=== PATIENT | female | born 1975 | race Caucasian/White ===

== ENCOUNTER 2024-01-06 16:10 | Emergency (ER) | payer OTHER ==
[2024-01-06 17:14] LABS: Hematocrit 38.8 % (36.0-45.0); Hemoglobin 12.7 g/dL (12.0-15.0); MCHC 32.8 g/dL (32.0-36.0); MCV 79.2 fL (80-100); Platelets 235 thou/uL (152-406); Red Cell Distribution Width 16.7 % (12.1-15.2)
[2024-01-06 17:15] LABS: Absolute Basophils 0.1 K/uL (0-0.5); Absolute Eosinophils 0.1 K/uL (0-0.5); Absolute Lymphocytes (CBC) 1.9 K/uL (0.7-4.9); Absolute Monocytes 0.3 K/uL (0.1-1.3); Absolute Neutrophil 4.8 K/uL (1.8-8.0); Eosinophils % 0.8 % (0-4.4); Lymphocytes % 26.1 % (15.3-44.8); MPV 8.3 fL (7.6-11.3); Monocytes % 4.6 % (3.3-12.3); Neutrophils % 66.5 % (41.7-73.7); Nucleated Red Blood Cells % 0.1 % (0-0)
[2024-01-06 17:28] LABS: Specific Gravity 1.024 (1.005-1.030); Sqamous Epithelial <5 /HPF (None Seen); Urine Bacteria <20 /HPF (<20); Urine Bilirubin NEGATIVE (Negative); Urine Blood 2+ (Negative); Urine Clarity Extremely Turbid (Clear); Urine Color Yellow (Yellow); Urine Crystals Unidentified Few /HPF (None Seen); Urine Culture Reflex Order REFLEXED; Urine Glucose NEGATIVE (Negative); Urine Ketones NEGATIVE (Negative); Urine Microscopic Reflex YN ORDER UMIC; Urine Nitrite NEGATIVE (Negative); Urine Protein 1+ (Negative); Urine RBC 21-50 /HPF (None Seen); Urine Urobilinogen Normal (Normal); Urine WBC >50 /HPF (<5); Urine WBC Clump Rare /HPF (None Seen)
[2024-01-06 17:29] LABS: ALT/SGPT 15 U/L (13-56); Albumin 3.6 g/dL (3.4-5.0); Albumin/Globulin Ratio 0.9 (1.1-1.8); Alkaline Phosphatase 68 U/L (45-117); BUN Blood Urea Nitrogen 12 mg/dL (7-18); Bicarbonate 28 mEq/L (21-32); Bilirubin Total 0.6 mg/dL (0.2-1.0); Globulin 4.1 g/dL (2.3-3.5); Glomerular Filtration Rate 77 ml/min (=/>90); Glucose Level 93 mg/dL (74-106); Protein, Total 7.7 g/dL (6.4-8.2); Sodium Level 140 mEq/L (136-145)
[2024-01-06 17:30] LABS: AST/SGOT < 10 U/L (15-37)
[2024-01-06] MEDS ORDERED: CEFTRIAXONE 1000 MG/VIAL ONE (18:11)
[2024-01-06] MEDS ORDERED: NA CHLORIDE 0.9% 500 ML ONE (18:11)
--- NOTE | 2024-01-06 18:59 | ER ---
Nurse's Notes [facility] Name: Abhishek Quezada Age: 48 yrs Sex: Female : 1975 Arrival Date: 01/06/2024 Time: 16:10 Bed 7 Private MD: Diagnosis: UTI/ Urinary tract infection, site not specified Presentation: 01/05 16:42 Chief complaint: Patient states: I've been having trouble making it to the restroom. I tm6 have urinary frequency, urgency, and a burning sensation when I use the bathroom. My urine also has a bad smell. This has been going on for two days. Coronavirus screen: Vaccine status: Patient reports being unvaccinated. Ebola Screen: Patient negative for fever greater than or equal to 101.5 degrees Fahrenheit, and additional compatible Ebola Virus Disease symptoms Patient denies exposure to infectious person. Patient denies travel to an Ebola-affected area in the 21 days before illness onset. No symptoms or risks identified at this time. Initial Sepsis Screen: Does the patient meet any 2 criteria? No. Patient's initial sepsis screen is negative. Does the patient have a suspected source of infection? No. Patient's initial sepsis screen is negative. Risk Assessment: Do you want to hurt yourself or someone else? Patient reports no desire to harm self or others. Onset of symptoms was January 04, 2024. 16:42 Method Of Arrival: Wheelchair tm6 16:42 Acuity: [place] 3 tm6 Triage Assessment: 16:47 General: Appears in no apparent distress. Behavior is calm, cooperative. Pain: tm6 Complains of pain in groin Pain currently is 0 out of 10 on a pain scale. at worst was 5 out of 10 on a pain scale. Quality of pain is described as burning, Pain began 2-3 days ago. Aggravated by. EENT: No signs and/or symptoms were reported regarding the EENT system. Neuro: Level of Consciousness is awake, alert, obeys commands, Oriented to person, place, time, situation. Cardiovascular: Patient's skin is warm and dry. Respiratory: Airway is patent Respiratory effort is even, unlabored, Respiratory pattern is regular, symmetrical. GI: Abdomen is obese. : Reports burning with urination, since two days ago incontinence, urgency, urinary frequency. Derm: No signs and/or symptoms reported regarding the dermatologic system. Musculoskeletal: No signs and/or symptoms reported regarding the musculoskeletal system. 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 Flu vaccine is up to date. - Infectious Disease History:: Denies. - Social history:: Smoking status: Reported history of juuling and/or vaping. Patient/guardian denies using alcohol. Screenin:50 [facility] ED Fall Risk Assessment (Adult) History of falling in the last 3 months, tm6 including since admission No falls in past 3 months (0 pts) Confusion or Disorientation No (0 pts) Intoxicated or Sedated No (0 pts) Impaired Gait Yes (1 pt) Mobility Assist Device Used Yes (1 pt) Altered Elimination Yes (1 pt) Score/Fall Risk Level 3 or more points = High Risk Oriented to surroundings, Maintained a safe environment, Educated pt \T\ family on fall prevention, incl call for assistance when getting out of bed. Abuse screen: Denies threats or abuse. Denies injuries from another. Nutritional screening: No deficits noted. Tuberculosis screening: No symptoms or risk factors identified. Assessment: 16:50 Reassessment: see triage assessment. tm6 18:20 Reassessment: Patient and/or family updated on plan of care and expected duration. Pain tm6 level reassessed. Patient is alert, oriented x 3, equal unlabored respirations, skin warm/dry/pink. Vital Signs: 16:42 BP 129 / 52; Pulse 67; Resp 20; Temp 98.9(O); Pulse Ox 100% on R/A; MAP 72 mmHg; Weight tm6 181.44 kg; Height 5 ft. 4 in. ; Pain 0/10; 18:19 BP 145 / 60; Pulse 60; Pulse Ox 100% on R/A; MAP 86 mmHg; Pain 0/10; ph 19:13 BP 146 / 54; Pulse 72; Resp 17; Temp 98.9; Pulse Ox 100% ; Pain 0/10; ph 16:42 Body Mass Index 68.66 (181.44 kg, 162.56 cm) tm6 16:42 Pain Scale: Adult tm6 18:19 Pain Scale: Adult ph 19:13 Pain Scale: Adult ph [place] Coma Score: 19:13 Eye Response: spontaneous(4). Motor Response: obeys commands(6). Verbal Response: ph oriented(5). Total: 15. ED Course: 16:15 Patient arrived in ED. ra3 16:22 Theodore Leon FNP-C is [facility]. dr5 16:22 Perico Sharpe MD is Attending Physician. dr5 16:42 Les Holm RN is Primary Nurse. tm6 16:47 Triage completed. tm6 16:47 Arm band placed on right wrist. tm6 16:50 Patient has correct armband on for positive identification. Fall risk band placed. Bed tm6 in low position. Call light in reach. Side rails up X 1. Provided Education on: use of call lópez. Client placed on continuous cardiac and pulse oximetry monitoring. NIBP monitoring applied. Pulse ox on. NIBP on. Door closed. Noise minimized. Warm blanket given. Pillow given. 17:02 Inserted saline lock: 20 gauge in right antecubital area, using aseptic technique. tm6 Blood collected. Flushed with 10 mL NS. 17:03 Urine collected: clean catch specimen, clear. tm6 19:08 No provider procedures requiring assistance completed. IV discontinued, intact, ph bleeding controlled, No redness/swelling at site. Pressure dressing applied. Administered Medications: 18:20 Drug: NS 0.9% IV 500 ml IV at bolus once; to be given as a bolus over 30 minutes Route: tm6 IV; Rate: bolus; Site: right antecubital; 19:12 Follow up: Response: No adverse reaction; IV Status: Completed infusion; IV Intake: ph 500ml 18:20 Drug: Rocephin IV 1 grams IV at per protocol once; Given slow IV push per pharmacy tm6 instructions Route: IV; Rate: per protocol; Site: right antecubital; 19:12 Follow up: Response: No adverse reaction; IV Status: Completed infusion; IV Intake: 10mlph Medication: 16:50 VIS not applicable for this client. tm6 Intake: 19:12 IV: 10ml; Total: 10ml. ph 19:12 IV: 500ml; Total: 510ml. ph Outcome: 18:59 Discharge ordered by . dr5 19:08 Discharged to home via wheelchair, with family, ph 19:08 Condition: good 19:08 Discharge instructions given to patient, Instructed on discharge instructions, follow up and referral plans. medication usage, Demonstrated understanding of instructions, follow-up care, medications, 19:09 Prescriptions given X 2, ph 19:09 Patient left the ED. ph Signatures: Stella Melissa RN RN ph Les Holm RN RN tm6 Collette Patel ra3 Theodore Leon, GANG DRILL PRESS OPERATOR-C GANG DRILL PRESS OPERATOR-Cdr5 Corrections: (The following items were deleted from the chart) 17:03 16:54 Urinalysis+U.LAB.BRZ drawn and sent. tm6 EDMS
--- NOTE | 2024-01-06 18:59 | EDPHYS ---
Physician Documentation [facility] Name: Abhishek Quezada Age: 48 yrs Sex: Female : 1975 Arrival Date: 01/06/2024 Time: 16:10 Bed 7 Private MD: ED Physician Perico Sharpe HPI: 01/05 17:57 This 48 yrs old Female presents to ER via Wheelchair with complaints of dr5 Urinary Problem. 17:58 Onset: The symptoms/episode began/occurred 2 day(s) ago. Associated signs and symptoms: dr5 Pertinent positives: dysuria. Modifying factors: The patient symptoms are alleviated by nothing. Patient is a 48-year-old female coming in with dysuria malodorous urine for the past 2 days. Patient denies fever, vaginal discharge, vaginal bleeding, melena.. 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 Flu vaccine is up to date. - Infectious Disease History:: Denies. - Social history:: Smoking status: Reported history of juuling and/or vaping. Patient/guardian denies using alcohol. ROS: 17:58 Constitutional: as per hpi dr5 Exam: 17:58 Constitutional: This is a well developed, well nourished patient who is awake, alert, dr5 and in no acute distress. Head/Face: Normocephalic, atraumatic. Cardiovascular: Regular rate and rhythm with a normal S1 and S2. Normal PMI, no JVD. No pulse deficits. Respiratory: Lungs have equal breath sounds bilaterally, clear to auscultation. No rales, rhonchi or wheezes noted. No increased work of breathing, no retractions or nasal flaring. Abdomen/GI: Soft, non-tender, non-distended Vital Signs: 16:42 BP 129 / 52; Pulse 67; Resp 20; Temp 98.9(O); Pulse Ox 100% on R/A; MAP 72 mmHg; Weight tm6 181.44 kg; Height 5 ft. 4 in. ; Pain 0/10; 18:19 BP 145 / 60; Pulse 60; Pulse Ox 100% on R/A; MAP 86 mmHg; Pain 0/10; ph 19:13 BP 146 / 54; Pulse 72; Resp 17; Temp 98.9; Pulse Ox 100% ; Pain 0/10; ph 16:42 Body Mass Index 68.66 (181.44 kg, 162.56 cm) tm6 16:42 Pain Scale: Adult tm6 18:19 Pain Scale: Adult ph 19:13 Pain Scale: Adult ph [place] Coma Score: 19:13 Eye Response: spontaneous(4). Motor Response: obeys commands(6). Verbal Response: ph oriented(5). Total: 15. MDM: 16:28 Medical Screening Exam initiated dr5 17:58 Differential diagnosis: viral Infection, bacterial infection, UTI. Data reviewed: vital dr5 signs, nurses notes. Consideration of Admission/Observation Escalation of care including admission/observation considered. Considered CT scan if patient had CVA tenderness, fever, or abdominal pain.. Care significantly affected by the following chronic conditions: PE, CHF. Care significantly affected by the following Social Determinants of Health: Poor access to healthcare and/or lack of insurance, Poor access to transportation. Counseling: I had a detailed discussion with the patient and/or guardian regarding the historical points, exam findings, and any diagnostic results supporting the discharge/admit diagnosis, lab results, the need for outpatient follow up, for definitive care, a family practitioner, to return to the emergency department if symptoms worsen or persist or if there are any questions or concerns that arise at home. ED course: UA completed and found to have urinary tract infection. Will cover with antibiotics and anticandida medication. Will have patient follow-up with primary care doctor as needed. 01/05 16:41 Order name: Urinalysis w/ reflexes; Complete Time: 17:34 dr5 01/05 16:41 Order name: CBC with Manual Differential; Complete Time: 17:34 dr5 01/05 16:41 Order name: CMP; Complete Time: 17:34 dr5 01/05 17:34 Order name: Urine Culture EDMS Administered Medications: 18:20 Drug: NS 0.9% IV 500 ml IV at bolus once; to be given as a bolus over 30 minutes Route: tm6 IV; Rate: bolus; Site: right antecubital; 19:12 Follow up: Response: No adverse reaction; IV Status: Completed infusion; IV Intake: ph 500ml 18:20 Drug: Rocephin IV 1 grams IV at per protocol once; Given slow IV push per pharmacy tm6 instructions Route: IV; Rate: per protocol; Site: right antecubital; 19:12 Follow up: Response: No adverse reaction; IV Status: Completed infusion; IV Intake: 10mlph Disposition Summary: 01/06/24 18:59 Discharge Ordered Notes: Location: Home dr5 Condition: Stable dr5 Diagnosis - UTI/ Urinary tract infection, site not specified dr5 Followup: dr5 - With: Emergency Department - When: As needed - Reason: Worsening of condition Followup: dr5 - With: Private Physician - When: 1 - 2 days - Reason: Recheck today's complaints, Continuance of care, Re-evaluation by your physician Discharge Instructions: - Discharge Summary Sheet dr5 - Urinary Tract Infection, Adult dr5 Forms: - Medication Reconciliation Form dr5 - Antibiotic Education dr5 - Patient Portal Instructions dr5 - Leadership Thank You Letter dr5 Prescriptions: - Cephalexin 500 mg Oral Capsule - take 1 capsule ORAL route every 12 hours for 10 days; 20 capsule; Refills: 0, dr5 Product Selection Permitted - Fluconazole 150 mg Oral tablet - take 1 tablet ORAL route Use as Directed Take 1 tablet PO today. Take 1 tablet dr5 PO after completion of antibiotics.; 2 tablet; Refills: 0, Product Selection Permitted Signatures: Dispatcher [employer] Les Chi RN RN tm6 Theodore Leon, WEATHERIZATION AND HOUSING INSPECTOR-C WEATHERIZATION AND HOUSING INSPECTOR-Cdr5 Setlla Melissa RN ph Corrections: (The following items were deleted from the chart) 17:03 16:41 Urinalysis+U.LAB.BRZ ordered. EDCT EDMS
[2024-01-07 01:18] VITALS: TEMP 98.9; O2SAT 100
[2024-01-07 01:24] VITALS: BP 145/60
== END 2024-01-06 19:09 | disposition home or self-care (01) ==
LOC: ER 16:10
DX: N39.0 Urinary tract infection, site not specified (principal)
CPT/HCPCS: 96365; 87088; 85025; 81001; 87086; 36415; 87077 ×2; 87186 ×2; 80053; 99284; J7040; J0696

== ENCOUNTER 2024-10-25 21:10 | Emergency (ER) | payer MEDICAID ==
--- OUTSIDE RECORDS SUMMARY | 2024-10-25 21:20 | XMS REPORT | Continuity of Care Document ---
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 2023-0 4-23 00:00: 00 10-08 00:00 :00 No [facility] Vraylar 3 mg Cap Vraylar 3 mg Cap 2023-0 4-23 00:00: 00 10-08 00:00 :00 No [facility] Lisinopril 10 mg Tab Lisinopril 10 mg Tab 2023-0 3-29 00:00: 00 Yes [facility] Atorvastati n Calcium 10 mg Tab Atorvastati n Calcium 10 mg Tab 0 3-28 00:00: 00 Yes [facility] Gabapentin 100 mg Cap Gabapentin 100 mg Cap 0 3-28 00:00: 00 - 00:00 :00 No [facility] buPROPion ER (XL) 150 mg Tab ER 24hr buPROPion ER (XL) 150 mg Tab ER 24hr 2022-0 9-26 00:00: 00 Yes [facility] Montelukast Sodium 10 mg Tab Montelukast Sodium 10 mg Tab 2022-0 9-13 00:00: 00 Yes [facility] Advair Diskus 250-50 MCG/ACT Aerosol Powder Breath Activated Inhalation Advair Diskus 250-50 MCG/ACT Aerosol Powder Breath Activated Inhalation 2022-0 8- 00:00: 00 Yes [facility] Ventolin HFA 108 (90 Base) MCG/ACT Aerosol Solution Inhalation Ventolin HFA 108 (90 Base) MCG/ACT Aerosol Solution Inhalation 0 8 00:00: 00 Yes [facility] Advair Diskus 250-50 MCG/ACT Aerosol Powder Breath Activated Inhalation Advair Diskus 250-50 MCG/ACT Aerosol Powder Breath Activated Inhalation 0 8- 00:00: 00 Yes [facility] Ventolin HFA 108 (90 Base) MCG/ACT Aerosol Solution Inhalation Ventolin HFA 108 (90 Base) MCG/ACT Aerosol Solution Inhalation 2022-0 8- 00:00: 00 Yes [facility] hydrOXYzine Pamoate 25 mg Cap hydrOXYzine Pamoate 25 mg Cap 2022-0 6-30 00:00: 00 Yes [facility] hydrOXYzine Pamoate 25 mg Cap hydrOXYzine Pamoate 25 mg Cap 2022-0 6-30 00:00: 00 Yes [facility] oxyBUTYnin Chloride ER 15 mg Tab ER 24hr oxyBUTYnin Chloride ER 15 mg Tab ER 24hr 2022-0 6-30 00:00: 00 Yes [facility] Furosemide 20 mg Tab Furosemide 20 mg Tab 2022-0 6-30 00:00: 00 Yes [facility] hydrOXYzine Pamoate 50 mg Cap hydrOXYzine Pamoate 50 mg Cap 2022-0 6-30 00:00: 00 Yes [facility] oxyBUTYnin Chloride ER 15 mg Tab ER 24hr oxyBUTYnin Chloride ER 15 mg Tab ER 24hr 2022-0 - 00:00: 00 Yes [facility] Eliquis 5 mg Tab Eliquis 5 mg Tab 2022-0 6 00:00: 00 08-31 00:00 :00 No [facility] Eliquis 5 mg Tab Eliquis 5 mg Tab 2022-0 09-08 00:00: 00 08-31 00:00 :00 No [facility] Venlafaxine ER 150 mg Tab ER 24hr Venlafaxine ER 150 mg Tab ER 24hr 2022-0 15 00:00: 00 Yes [facility] Divalproex Sodium ER 500 mg Tab ER 24hr Divalproex Sodium ER 500 mg Tab ER 24hr 2022-0 6- 00:00: 00 Yes [facility] traZODone 150 mg Tab traZODone 150 mg Tab 2022-0 3-07 00:00: 00 Yes [facility] ARIPiprazol e 30 mg Tab ARIPiprazol e 30 mg Tab 2022-0 3-07 00:00: 00 Yes [facility] traZODone 150 mg Tab traZODone 150 mg Tab 2022-0 3-07 00:00: 00 Yes [facility] Desvenlafax ine Succinate ER 100 mg Tab ER 24hr Desvenlafax ine Succinate ER 100 mg Tab ER 24hr 2022-0 3-07 00:00: 00 10-08 00:00 :00 No [facility] Atorvastati n Calcium Atorvastati n Calcium 2019-03- 05:00: 00 Yes 1 [facility] Advair Diskus 250 mcg-50 mcg/dose powder for inhalation INHALE 1 PUFF BY MOUTH TWICE DAILY Advair Diskus 250 mcg-50 mcg/dose powder for inhalation INHALE 1 PUFF BY MOUTH TWICE DAILY No Advair Diskus 250 mcg-50 mcg/dose powder for inhalation INHALE 1 PUFF BY MOUTH TWICE DAILY [facility] Eliquis 5 mg tablet TAKE 1 TABLET BY MOUTH EVERY 12 HOURS DIRECTED Eliquis 5 mg tablet TAKE 1 TABLET BY MOUTH EVERY 12 HOURS DIRECTED No Eliquis 5 mg tablet TAKE 1 TABLET BY MOUTH EVERY 12 HOURS DIRECTED [facility] fluconazole 200 mg tablet TAKE 1 TABLET BY MOUTH EVERY 72 HOURS DIRECTED FOR 15 DAYS fluconazole 200 mg tablet TAKE 1 TABLET BY MOUTH EVERY 72 HOURS DIRECTED FOR 15 DAYS No fluconazol e 200 mg tablet TAKE 1 TABLET BY MOUTH EVERY 72 HOURS DIRECTED FOR 15 DAYS [facility] hydroxyzine HCl 50 mg tablet TAKE 1 TABLET BY MOUTH FOUR TIMES DAILY DIRECTED FOR DEPRESSION hydroxyzine HCl 50 mg tablet TAKE 1 TABLET BY MOUTH FOUR TIMES DAILY DIRECTED FOR DEPRESSION No hydroxyzin e HCl 50 mg tablet TAKE 1 TABLET BY MOUTH FOUR TIMES DAILY DIRECTED FOR DEPRESSION [facility] ropinirole 0.25 mg tablet TAKE 1 BY MOUTH EVERY NIGHT AT BEDTIME FOR RESTLESS LEG SYNDROME ropinirole 0.25 mg tablet TAKE 1 BY MOUTH EVERY NIGHT AT BEDTIME FOR RESTLESS LEG SYNDROME No ropinirole 0.25 mg tablet TAKE 1 BY MOUTH EVERY NIGHT AT BEDTIME FOR RESTLESS LEG SYNDROME [facility] sulfamethox azole 800 mg-trimetho prim 160 mg tablet TAKE 1 TABLET BY MOUTH EVERY 12 HOURS FOR 7 DAYS sulfamethox azole 800 mg-trimetho prim 160 mg tablet TAKE 1 TABLET BY MOUTH EVERY 12 HOURS FOR 7 DAYS No sulfametho xazole 800 mg-trimeth oprim 160 mg tablet TAKE 1 TABLET BY MOUTH EVERY 12 HOURS FOR 7 DAYS [facility] tizanidine 2 mg tablet tizanidine 2 mg tablet No tizanidine 2 mg tablet [facility] aripiprazol e 20 mg tablet Take 1 tablet every day by oral route with meal(s) for 30 days. aripiprazol e 20 mg tablet Take 1 tablet every day by oral route with meal(s) for 30 days. No 1 Q1D aripiprazo le 20 mg tablet Take 1 tablet every day by oral route with meal(s) for 30 days. [facility] cetirizine 10 mg tablet TAKE 1 TABLET BY MOUTH EVERY DAY cetirizine 10 mg tablet TAKE 1 TABLET BY MOUTH EVERY DAY No cetirizine 10 mg tablet TAKE 1 TABLET BY MOUTH EVERY DAY [facility] clotrimazol e-betametha sone 1 %-0.05 % topical cream APPLY TOPICALLY TO THE AFFECTED AND SURROUNDING AREAS TWICE DAILY IN THE MORNING AND IN THE EVENING FOR 2 WEEKS clotrimazol e-betametha sone 1 %-0.05 % topical cream APPLY TOPICALLY TO THE AFFECTED AND SURROUNDING AREAS TWICE DAILY IN THE MORNING AND IN THE EVENING FOR 2 WEEKS No clotrimazo le-betamet hasone 1 %-0.05 % topical cream APPLY TOPICALLY TO THE AFFECTED AND SURROUNDIN G AREAS TWICE DAILY IN THE MORNING AND IN THE EVENING FOR 2 WEEKS [facility] fluticasone propionate 50 mcg/actuati on nasal spray,suspe nsion fluticasone propionate 50 mcg/actuati on nasal spray,suspe nsion No fluticason e propionate 50 mcg/actuat ion nasal spray,susp ension [facility] cephalexin 500 mg capsule cephalexin 500 mg capsule No cephalexin 500 mg capsule [facility] fluconazole 150 mg tablet fluconazole 150 mg tablet No fluconazol e 150 mg tablet [facility] ciprofloxac in 500 mg tablet TAKE 1 TABLET BY MOUTH TWICE DAILY ciprofloxac in 500 mg tablet TAKE 1 TABLET BY MOUTH TWICE DAILY No ciprofloxa jacinto 500 mg tablet TAKE 1 TABLET BY MOUTH TWICE DAILY [facility] amitriptyli ne 50 mg tablet TAKE 1 TABLET BY MOUTH EVERY DAY AT BEDTIME amitriptyli ne 50 mg tablet TAKE 1 TABLET BY MOUTH EVERY DAY AT BEDTIME No amitriptyl ine 50 mg tablet TAKE 1 TABLET BY MOUTH EVERY DAY AT BEDTIME [facility] famotidine 20 mg tablet TAKE 1 TABLET BY MOUTH TWICE DAILY FOR STOMACH ACID OR REFLUX famotidine 20 mg tablet TAKE 1 TABLET BY MOUTH TWICE DAILY FOR STOMACH ACID OR REFLUX No famotidine 20 mg tablet TAKE 1 TABLET BY MOUTH TWICE DAILY FOR STOMACH ACID OR REFLUX [facility] varenicline tartrate 0.5 mg (11)-1 mg (42) tablets in a dose pack FOLLOW PACKAGE DIRECTIONS varenicline tartrate 0.5 mg (11)-1 mg (42) tablets in a dose pack FOLLOW PACKAGE DIRECTIONS No vareniclin e tartrate 0.5 mg (11)-1 mg (42) tablets in a dose pack FOLLOW PACKAGE DIRECTIONS [facility] Ativan 0.5 mg tablet Take 1 tablet every day by oral route as needed for 30 days. Ativan 0.5 mg tablet Take 1 tablet every day by oral route as needed for 30 days. No 1 Q1D Ativan 0.5 mg tablet Take 1 tablet every day by oral route as needed for 30 days. [facility] atomoxetine 40 mg capsule TAKE 1 CAPSULE BY MOUTH EVERY DAY atomoxetine 40 mg capsule TAKE 1 CAPSULE BY MOUTH EVERY DAY No atomoxetin e 40 mg capsule TAKE 1 CAPSULE BY MOUTH EVERY DAY [facility] bupropion HCl XL 300 mg 24 hr tablet, extended release TAKE 1 TABLET BY MOUTH EVERY DAY bupropion HCl XL 300 mg 24 hr tablet, extended release TAKE 1 TABLET BY MOUTH EVERY DAY No bupropion HCl XL 300 mg 24 hr tablet, extended release TAKE 1 TABLET BY MOUTH EVERY DAY [facility] lisinopril 20 mg tablet TAKE 1 TABLET BY MOUTH EVERY DAY lisinopril 20 mg tablet TAKE 1 TABLET BY MOUTH EVERY DAY No lisinopril 20 mg tablet TAKE 1 TABLET BY MOUTH EVERY [facility] mupirocin 2 % topical ointment APPLY 1/2 GM TOPICALLY TWICE DAILY FOR PRESSURE [facility] DIRECTED FOR 30 DAYS mupirocin 2 % topical ointment APPLY 1/2 GM TOPICALLY TWICE DAILY FOR PRESSURE [facility] DIRECTED FOR 30 DAYS No mupirocin 2 % topical ointment APPLY 1/2 GM TOPICALLY TWICE DAILY FOR PRESSURE [facility] DIRECTED FOR 30 DAYS [facility] prednisone 20 mg tablet TAKE 1 TABLET BY MOUTH EVERY DAY FOR 7 DAYS prednisone 20 mg tablet TAKE 1 TABLET BY MOUTH EVERY DAY FOR 7 DAYS No prednisone 20 mg tablet TAKE 1 TABLET BY MOUTH EVERY DAY FOR 7 DAYS [facility] venlafaxine ER 225 mg tablet,exte nded release 24 hr TAKE 1 TABLET BY MOUTH DAILY WITH FOOD venlafaxine ER 225 mg tablet,exte nded release 24 hr TAKE 1 TABLET BY MOUTH DAILY WITH FOOD No venlafaxin e ER 225 mg tablet,ext ended release 24 hr TAKE 1 TABLET BY MOUTH DAILY WITH FOOD [facility] Eliquis 5 mg tablet TAKE 1 TABLET BY MOUTH EVERY 12 HOURS DIRECTED Eliquis 5 mg tablet TAKE 1 TABLET BY MOUTH EVERY 12 HOURS DIRECTED No Eliquis 5 mg tablet TAKE 1 TABLET BY MOUTH EVERY 12 HOURS DIRECTED [facility] tizanidine 2 mg tablet TAKE 1 TABLET BY MOUTH EVERY 8 HOURS NEEDED tizanidine 2 mg tablet TAKE 1 TABLET BY MOUTH EVERY 8 HOURS NEEDED No tizanidine 2 mg tablet TAKE 1 TABLET BY MOUTH EVERY 8 HOURS NEEDED [facility] trazodone 100 mg tablet TAKE 1 TABLET BY MOUTH EVERY DAY AT BEDTIME trazodone 100 mg tablet TAKE 1 TABLET BY MOUTH EVERY DAY AT BEDTIME No trazodone 100 mg tablet TAKE 1 TABLET BY MOUTH EVERY DAY AT BEDTIME [facility] aripiprazol e 10 mg tablet TAKE 1 TABLET BY MOUTH EVERY DAY AT BEDTIME aripiprazol e 10 mg tablet TAKE 1 TABLET BY MOUTH EVERY DAY AT BEDTIME No aripiprazo le 10 mg tablet TAKE 1 TABLET BY MOUTH EVERY DAY AT BEDTIME [facility] Immunizations Ordered Immunization Name Filled Immunization Name Date Status Comments Source Tdap Tdap Unknown Completed [facility] influenza, injectable, quadrivalent, preservative free influenza, injectable, quadrivalent, preservative free Unknown Completed [facility] Vital Signs Vital Name Observation Time Observation Value Comments S margy Systolic blood pressure 2024-10-13 19:42:00 129 mm[Hg] [facility] Diastolic blood pressure 2024-10-13 19:42:00 83 mm[Hg] [facility] Heart rate 2024-10-13 19:42:00 73 /min [facility] Body temperature 2024-10-13 19:42:00 36 [facility] Respiratory rate 2024-10-13 19:42:00 18 /min [facility] Body height 2024-10-13 19:42:00 162.6 cm [facility] Body weight 2024-10-13 19:42:00 171.46 kg [facility] BMI 2024-10-13 19:42:00 64.88 kg/m2 [facility] Oxygen saturation in Arterial blood by Pulse oximetry 2024-10-13 19:42:00 95 /min [facility] Systolic blood pressure 2024-09-23 17:16:00 151 mm[Hg] [facility] Diastolic blood pressure 2024-09-23 17:16:00 81 mm[Hg] [facility] Heart rate 2024-09-23 17:16:00 94 /min [facility] Body temperature 2024-09-23 17:16:00 36.78 [facility] Respiratory rate 2024-09-23 17:16:00 16 /min [facility] Body weight 2024-09-23 17:16:00 170.552 kg [facility] BMI 2024-09-23 17:16:00 64.54 kg/m2 [facility] Oxygen saturation in Arterial blood by Pulse oximetry 2024-09-23 17:16:00 97 /min [facility] Systolic blood pressure 2024-09-23 17:16:00 151 mm[Hg] [facility] Diastolic blood pressure 2024-09-23 17:16:00 81 mm[Hg] [facility] Heart rate 2024-09-23 17:16:00 94 /min [facility] Body temperature 2024-09-23 17:16:00 36.78 [facility] Respiratory rate 2024-09-23 17:16:00 16 /min [facility] Body weight 2024-09-23 17:16:00 170.552 kg [facility] BMI 2024-09-23 17:16:00 64.54 kg/m2 [facility] Oxygen saturation in Arterial blood by Pulse oximetry 2024-09-23 17:16:00 97 /min [facility] Systolic blood pressure 2024-09-09 17:11:00 136 mm[Hg] [facility] Diastolic blood pressure 2024-09-09 17:11:00 75 mm[Hg] [facility] Heart rate 2024-09-09 17:11:00 80 /min [facility] Body temperature 2024-09-09 17:11:00 36.72 [facility] Respiratory rate 2024-09-09 17:11:00 16 /min [facility] Body weight 2024-09-09 17:11:00 168.738 kg [facility] BMI 2024-09-09 17:11:00 63.85 [facility] in Arterial blood by Pulse oximetry 2024-09-09 17:11:00 96 /min [facility] Systolic blood pressure 2024-09-09 17:11:00 136 mm[Hg] [facility] Diastolic blood pressure 2024-09-09 17:11:00 75 mm[Hg] [facility] Heart rate 2024-09-09 17:11:00 80 /min [facility] Body temperature 2024-09-09 17:11:00 36.72 [facility] Respiratory rate 2024-09-09 17:11:00 16 /min [facility] Body weight 2024-09-09 17:11:00 168.738 kg [facility] BMI 2024-09-09 17:11:00 63.85 kg/m2 [facility] Oxygen saturation in Arterial blood by Pulse oximetry 2024-09-09 17:11:00 96 /min [facility] Systolic blood pressure 2024-09-08 19:16:00 132 mm[Hg] [facility] Diastolic blood pressure 2024-09-08 19:16:00 70 mm[Hg] [facility] Heart rate 2024-09-08 19:16:00 95 /min [facility] Body temperature 2024-09-08 19:16:00 35.89 [facility] Body height 2024-09-08 19:16:00 162.6 cm [facility] Body weight 2024-09-08 19:16:00 169.674 kg [facility] BMI 2024-09-08 19:16:00 64.21 kg/m2 [facility] Oxygen saturation in Arterial blood by Pulse oximetry 2024-09-08 19:16:00 95 /min [facility] Systolic blood pressure 2024-09-08 19:16:00 132 mm[Hg] [facility] Diastolic blood pressure 2024-09-08 19:16:00 70 mm[Hg] [facility] Heart rate 2024-09-08 19:16:00 95 /min [facility] Body temperature 2024-09-08 19:16:00 35.89 [facility] Body height 2024-09-08 19:16:00 162.6 cm [facility] Body weight 2024-09-08 19:16:00 169.674 kg [facility] BMI 2024-09-08 19:16:00 64.21 kg/m2 [facility] Oxygen saturation in Arterial blood by Pulse oximetry 2024-09-08 19:16:00 95 /min [facility] Systolic blood pressure 2024-09-02 16:45:00 115 mm[Hg] [facility] Diastolic blood pressure 2024-09-02 16:45:00 63 mm[Hg] [facility] Heart rate 2024-09-02 16:45:00 71 /min [facility] Body temperature 2024-09-02 16:45:00 36.83 [facility] Respiratory rate 2024-09-02 16:45:00 14 /min [facility] Body weight 2024-09-02 16:45:00 181.439 kg [facility] BMI 2024-09-02 16:45:00 68.66 kg/m2 [facility] Oxygen saturation in Arterial blood by Pulse oximetry 2024-09-02 16:45:00 96 /min [facility] Systolic blood pressure 2024-09-02 16:45:00 115 mm[Hg] [facility] Diastolic blood pressure 2024-09-02 16:45:00 63 mm[Hg] [facility] Heart rate 2024-09-02 16:45:00 71 /min [facility] Body temperature 2024-09-02 16:45:00 36.83 [facility] Respiratory rate 2024-09-02 16:45:00 14 /min [facility] Body weight 2024-09-02 16:45:00 181.439 kg [facility] BMI 2024-09-02 16:45:00 68.66 kg/m2 [facility] Oxygen saturation in Arterial blood by Pulse oximetry 2024-09-02 16:45:00 96 /min [facility] Height 2023-08-23 00:00:00 64 [in_i] [facility] Height 2022-12-05 00:00:00 64 [in_i] [facility] BP Diastolic 2022-09-28 00:00:00 73 mm[Hg] [facility] Height 2022-09-28 00:00:00 64 [in_i] [facility] BP Systolic 2022-09-28 00:00:00 162 mm[Hg] [facility] BP Diastolic 2021-12-15 00:00:00 97 mm[Hg] [facility] Height 2021-12-15 00:00:00 64 [in_i] [facility] BMI (Body Mass Index) 2021-12-15 00:00:00 73.7 kg/m2 [facility] BP Systolic 2021-12-15 00:00:00 169 mm[Hg] [facility] Body Weight 2021-12-15 00:00:00 429.2 [lb_av] [facility] BP Diastolic 2021-10-10 00:00:00 86 mm[Hg] [facility] BP Systolic 2021-10-10 00:00:00 145 mm[Hg] [facility] Body Weight 2021-10-10 00:00:00 387.3 [lb_av] [facility] BP Diastolic 2021-05-17 00:00:00 78 mm[Hg] [facility] Height 2021-05-17 00:00:00 64 [in_i] [facility] BMI (Body Mass Index) 2021-05-17 00:00:00 66.8 kg/m2 [facility] BP Systolic 2021-05-17 00:00:00 124 mm[Hg] [facility] Body Weight 2021-05-17 00:00:00 6224 [oz_av] Jered [facility] BP Diastolic 2021-03-28 00:00:00 84 mm[Hg] [facility] Height 2021-03-28 00:00:00 64 [in_i] [facility] BMI (Body Mass Index) 2021-03-28 00:00:00 62.3 kg/m2 [facility] BP Systolic 2021-03-28 00:00:00 148 mm[Hg] [facility] Body Weight 2021-03-28 00:00:00 5808 [oz_av] [facility]ered [facility] BP Diastolic 2021-02-25 00:00:00 82 mm[Hg] [facility] Height 2021-02-25 00:00:00 64 [in_i] [facility] BMI (Body Mass Index) 2021-02-25 00:00:00 61.5 kg/m2 [facility] BP Systolic 2021-02-25 00:00:00 143 mm[Hg] [facility] Body Weight 2021-02-25 00:00:00 5729 [oz_av] Ma [facility] BP Diastolic 2021-02-16 00:00:00 85 mm[Hg] [facility] Height 2021-02-16 00:00:00 64 [in_i] [facility] BMI (Body Mass Index) 2021-02-16 00:00:00 62 kg/m2 [facility] BP Systolic 2021-02-16 00:00:00 125 mm[Hg] [facility] Body Weight 2021-02-16 00:00:00 361 [lb_av] Kedar [facility]serda [facility] Height 2020-09-04 00:00:00 64 [in_i] Fausto neala [facility] BMI (Body Mass Index) 2020-09-04 00:00:00 68.7 kg/m2 [facility] Body Weight 2020-09-04 00:00:00 400 [lb_av] [facility] BP Diastolic 2020-05-19 00:00:00 82 mm[Hg] Mat [facility] Height 2020-05-19 00:00:00 64 [in_i] Fausto neala [facility] BMI (Body Mass Index) 2020-05-19 00:00:00 65.9 kg/m2 [facility] BP Systolic 2020-05-19 00:00:00 134 mm[Hg] [facility] Body Weight 2020-05-19 00:00:00 6144 [oz_av] [facility] BP Diastolic 2020-01-23 00:00:00 77 mm[Hg] [facility] Height 2020-01-23 00:00:00 64 [in_i] [facility] BMI (Body Mass Index) 2020-01-23 00:00:00 64.7 kg/m2 [facility] BP Systolic 2020-01-23 00:00:00 114 mm[Hg] [facility] Body Weight 2020-01-23 00:00:00 6032 [oz_av] [facility] Height 2019-10-20 00:00:00 64 [in_i] [facility] BMI (Body Mass Index) 2019-10-20 00:00:00 65.1 kg/m2 [facility] Body Weight 2019-10-20 00:00:00 6064 [oz_av] Jered [facility] [facility] BP Diastolic 2019-09-26 00:00:00 78 mm[Hg] Kedar roserda [facility] Height 2019-09-26 00:00:00 64 [in_i] Fausto orda [facility] BMI (Body Mass Index) 2019-09-26 00:00:00 65.2 kg/m2 [facility] BP Systolic 2019-09-26 00:00:00 118 mm[Hg] Bipin jeffa [facility] Body Weight 2019-09-26 00:00:00 6076.8 [oz_av] [facility] Systolic blood pressure 2024-09-23 17:16:00 151 mm[Hg] [facility] Diastolic blood pressure 2024-09-23 17:16:00 81 mm[Hg] [facility] Heart rate 2024-09-23 17:16:00 94 /min [facility] Body temperature 2024-09-23 17:16:00 36.78 [facility] Respiratory rate 2024-09-23 17:16:00 16 /min [facility] Body weight 2024-09-23 17:16:00 170.552 kg [facility] BMI 2024-09-23 17:16:00 64.54 kg/m2 [facility] Oxygen saturation in Arterial blood by Pulse oximetry 2024-09-23 17:16:00 97 /min [facility] Height 2024-09-22 14:16:31 162.56 cm [facility] Weight 2024-09-22 14:16:31 [id number] kg David Body Mass Index (BMI) 2024-09-22 14:16:31 64.2 kg/m2 [facility] Body height 2024-09-08 19:16:00 162.6 cm [facility] Weight 2024-07-28 10:35:35 147.38498858 40260 kg [facility] Body Mass Index (BMI) 2024-07-28 10:35:35 55.96 kg/m2 [facility] Height 2024-05-09 09:03:17 162.56 cm [facility] Weight 2024-05-09 09:03:17 178.44095359 [id number] kg [facility] Body Mass Index (BMI) 2024-05-09 09:03:17 67.46 kg/m2 [facility] O2 % BldC Oximetry 2024-05-09 09:03:17 0 % [facility] Height 2023-12-18 09:14:52 162.56 cm [facility] Weight 2023-12-18 09:14:52 181.82089537 668393 kg [facility] Body Mass Index (BMI) 2023-12-18 09:14:52 68.66 kg/m2 [facility] Height 2023-10-09 10:50:54 162.56 cm [facility] Weight 2023-10-09 10:50:54 181.90066589 591023 kg [facility] Body Mass Index (BMI) 2023-10-09 10:50:54 68.66 kg/m2 [facility] BP Diastolic 2023-10-09 10:50:54 69 mm[Hg] [facility] BP Systolic 2023-10-09 10:50:54 131 mm[Hg] [facility] Heart Rate 2023-10-09 10:50:54 64 /min [facility] Temperature 2023-01-07 13:51:00 36.8 [facility] Heart Rate 2023-01-07 13:51:00 73.0 /min [facility] Respiration 2023-01-07 13:51:00 18.0 /min [facility] SpO2 2023-01-07 13:51:00 95.0 % [facility] Systolic 2023-01-07 13:51:00 100.0 mm[Hg] [facility] Diastolic 2023-01-07 13:51:00 57.0 mm[Hg] [facility] Temperature 2023-01-06 10:18:00 36.8 [facility] Heart Rate 2023-01-06 10:18:00 61.0 /min [facility] Respiration 2023-01-06 10:18:00 12.0 /min [facility] SpO2 2023-01-06 10:18:00 98.0 % [facility] Systolic 2023-01-06 10:18:00 129.0 mm[Hg] [facility] Diastolic 2023-01-06 10:18:00 84.0 mm[Hg] [facility] Temperature 2023-01-06 01:19:00 37.0 [facility] Heart Rate 2023-01-06 01:19:00 64.0 /min [facility] Respiration 2023-01-06 01:19:00 17.0 /min [facility] SpO2 2023-01-06 01:19:00 95.0 % [facility] Systolic 2023-01-06 01:19:00 132.0 mm[Hg] [facility] Diastolic 2023-01-06 01:19:00 82.0 mm[Hg] [facility] Weight Kgs 2023-01-06 01:19:00 184.6 KG [facility] Procedures Procedure Date / Time Performed Performing Clinician Source IR BIOPSY ABDOMEN RETROPERIT MUJICA PERCUTANEOUS WITH ULTRASOUND 2024-10-01 21:07:00 Keyon Gagnon [facility] SURGICAL PATHOLOGY EXAM 2024-10-01 19:40:00 Malachi Godinez [facility] CYTO ABDOMINAL FLUID 2024-10-01 19:40:00 Malachi Godinez [facility] REFERRAL OCCUPATIONAL THERAPY 2024-09-23 00:00:00 Antonio Carneyshal [facility] REFERRAL OCCUPATIONAL THERAPY 2024-09-23 00:00:00 Niraj Carney [facility] Estab. patient 10-29min; 1 m inor problem; add add modifier 95 for video, modifier 93 for phone 2024-09-22 14:16:31 [facility] and reconciled against what they were taking prior to admission during today's visit. (1111F) 2024-09-22 14:16:31 [facility] Advance care planning discus sed and documented advance care plan or surrogate decision-maker was documented in the medical record. (1123F) 2024-09-22 14:16:31 [facility] REF[facility]CCUP[facility] THERAP[facility] 2024-09-09 00:00:00 Giacomo Nails [facility] REFERRAL OCCUPATIONAL THERAPY 2024-09-02 00:00:00 Jesu [facility] REFERRAL OCCUPATIONAL THERAPY 2024-09-02 00:00:00 Jesu [facility] RN, CN or CP time with stefani nt by phone; use with 1111F, BP, A1c or other CPTII codes 2024-08-31 17:50:47 [facility] were [facility] and reconciled against what they were taking prior to admission during today's visit. (1111F) 2024-08-31 17:50:47 [facility] ENDOSCOPY PROCEDURE DOCUMENTATION 08-27 13:52:33 Doctor Unassigned, [facility] CBC WITH DIFF 2024-08-27 09:22:00 Jesu [facility] BASIC METABOLIC PANEL (NA, K , CL, CO2, GLUCOSE, BUN, CREATININE, CA) 2024-08-27 09:22:00 Jesu [facility] MAGNESIUM 2024-08-27 09:22:00 Jesu [facility] PHOSPHORUS 2024-08-27 09:22:00 Jesu [facility] IONIZED CALCIUM 2024-08-27 09:22:00 Jesu [facility] AC PANEL 21 + LACTIC ACID 2024-08-26 21:42:00 Jesu [facility] PHOSPHORUS 2024-08-26 21:03:00 Jesu [facility] MAGNESIUM 2024-08-26 21:03:00 Jesu [facility] BASIC METABOLIC PANEL (NA, K , CL, CO2, GLUCOSE, BUN, CREATININE, CA) 2024-08-26 21:03:00 Jesu [facility] CBC WITH DIFF 2024-08-26 21:03:00 Jesu [facility] IONIZED CALCIUM 2024-08-26 21:02:00 Nails, [facility] CYTO ORGAN ASPIRATION-FNA 2024-08-26 19:06:00 Vu [facility] UPPER EUS (ENDO) 2024-08-26 19:03:00 Keyon Gagnon [facility] ESOPHAGOGASTRODUODENOSCOPY 2024-08-26 17:50:00 Vu [facility] [id number] - CH[facility] GI ENDOSCOPIC US S&I 2024-08 17:50:00 Vu [facility] CBC WITH DIFF 2024-08-26 11:37:00 Giacomo Nails [facility] BASIC METABOLIC PANEL (NA, K , CL, CO2, GLUCOSE, BUN, CREATININE, CA) 2024-08-26 11:37:00 Jesu [facility] PROTHROMBIN TIME / INR 2024-08-26 11:37:00 Jesu [facility] COMP. METABOLIC PANEL (22956) 2024-08-25 21:57:00 Tejas [facility] PHOSPHORUS 2024-08-25 11:17:00 Lazaro [facility] MAGNESIUM 2024-08-25 11:17:00 Lazaro [facility] CBC WITH DIFF 2024-08-25 11:17:00 [facility] BASIC METABOLIC PANEL (NA, K , CL, CO2, GLUCOSE, BUN, CREATININE, CA) 2024-08-23 09:06:00 Lin, [facility] IONIZED CALCIUM 2024-08-23 09:06:00 Lin, [facility] PHOSPHORUS 2024-08-23 09:06:00 Lin, [facility] MAGNESIUM 2024-08-23 09:06:00 Lin, [facility] CBC WITHOUT DIFF 2024-08-23 09:06:00 Lin, [facility] HEPATIC FUNCTION PANEL (8007 6) (ALB,T.PRO,BILI T,BU/BC,ALT,AST,ALK PHOS) 2024-08-23 09:06:00 Lin, [facility] AC PANEL 21 + LACTIC ACID 2024-08-23 09:06:00 Lin, [facility] N-TERMINAL PRO-BNP 2024-08-23 09:06:00 Lin, [facility] IONIZED CALCIUM 2024-08-21 11:17:00 Jesu [facility] DUPLEX VENOUS LEGS BILATERAL - BY VASCULAR LAB 2024-08-20 17:00:33 Lin, [facility] ACTIVATED PARTIAL THRMPLAS MOISÉS 2024-08-10 0 22:38:[address] [facility] [address] ABDOMEN PELVIS W CONTRAST 2024-08-19 19:54:28 Lin, [facility] ACTIVATED PARTIAL THRMPLAS MOISÉS 2024-08-10 0 17:55:00 Jesu [facility] IONIZED CALCIUM 2024-08-19 09:43:00 Tejas [facility] PHOSPHORUS 2024-08-19 09:04:00 [place] [facility] COMP. METABOLIC PANEL (67656) 2024-08-19 09:04:00 [place] [facility] CBC WITH DIFF 2024-08-19 09:04:00 [place] [facility] N-TERMINAL PRO-BNP 2024-08-19 09:04:00 Delia [facility] MAGNESIUM 2024-08-19 05:00:00 [place] [facility] ACTIVATED PARTIAL THRMPLAS MOISÉS 2024-08-10 0 05:00:00 Jesu [facility] ACTIVATED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 mL/min/1.73 m2) Lab Interpretation (test code = 10030-1) [facility] [id number] 21:20:12ANA - Pathologist InterpretationANA Pathologist Interpretation Report STORM Titer: 1:80Pattern: AC-4/5-Speckled Interpretation:An STORM titer of 1:80 is considered a low-positive STORM result and is a non-specific finding that is not diagnostic for autoimmune disease on its own. Positive results for the STORM test - particularly at low-positive titers - are seen frequently in patients with non-autoimmuneconditions and even among healthy individuals. In particular, an STORM titer of 1:80 has been reported in approximately?10-15% of the general healthy population. Additionally, older individuals (especially women older than 65 years) more commonly have positive STORM results without having an underlyingautoimmune condition. Low-titer STORM positivity can also be seen in association with other conditions, such as thyroid disease, certain infections, malignancies, other inflammatory states, and certainmedication use, as well as in individuals with a family history of autoimmunity. A positive STORM alone does not confirm the presence of an autoimmune condition. Recommendations:Given the non-specific nature of this result, clinical correlation is essential. Further testing for disease-specific/associated autoantibodies should be guided by the patient's clinical presentation. Repeat testing may be warranted if symptoms suggestive of an autoimmune disease develop or persist. Comments Regarding ANAPatterns: For more information regarding the detected STORM pattern(s), please refer to the International Consensus on STORM Patterns (ICAP) website at https://www.anapatterns.org . As most STORM patterns have defined autoantibody associations, STORM patterns may provide some diagnostic clues based on autoa ntibodies predicted to be detected. However, due to imperfect correlations between predicted autoantibodies and actual autoantibodies detected and the overlap in patterns between autoimmune and non-autoimmune conditions, STORM patterns alone should not drive diagnosis. Disclaimer:This report provides general information and interpretive guidance related to the STORM result described herein. It is not intended to replace individualized clinical assessment or decision-making by the patient's clinical provider; rather, this report's purpose is to assist with the overall diagnostic process and to minimize misinterpretation of the STORM results. The specific interpretation of the STORM test and other autoimmune disease-related serology results in the context of a patient's overall clinical presentation should be performed by the ordering provider and/or an appropriate specialist, such as a quotation clerk. Further diagnosticevaluations or consultations may be necessary for a comprehensive understanding of the patient's condition. Eladia Yancey MD ?08/19/2024 ?4:19 PM 08/19/2024 4:20 PM [facility] SERVICESBapt[facility] Medical CenterCT Abdomen pelvis w [id number] 20:30:10CT ABDOMEN PELVIS W CONTRAST 08/19/2024 2:35 PM HISTORY: Hernia, complicated COMPARISON: Ultrasound dated 08/15/2024. TECHNIQUE: Axial images of the abdomen and pelvis were acquired afteradministration of intravenous contrast. Coronal and sagittalreconstructions were also created. FINDINGS: LOWER CHEST: Right lower lobe 8 mm subpleural nodule is noted. Scatteredlinear atelectasis. HEPATOBILIARY: Theliver is enlarged measuring 22.4 cm. No focal hepaticlesion.The gallbladder is distended with intraluminal sludge/stones in thegallbladder neck.No biliary ductal dilatation. SPLEEN: Enlarged measuring 18.1 cm. ?No lesion. PANCREAS: The parenchyma is unremarkable. No ductal dilatation. No masses. ADRENAL GLANDS: No adrenal nodules. KIDNEYS: No hydronephrosis or stone. No solid mass. PELVIS/BLADDER: The urinary bladder is normal. The reproductive organs arewithin normal limits. GI TRACT, PERITONEUM AND RETROPERITONEUM: There is 21.5 x 12 x 16.5 cmheterogeneously enhancing mass in the left side of the abdomen abutting theinner aspect of the left abdominal wall. The lesion appears inseparablefrom the inferior aspect of the gastric antrum. ?No evidence of bowelobstruction. No free air or free fluid. LYMPH NODES: No lymphadenopathy is seen. VESSELS: Within normal limits. BONES AND SOFT TISSUES: No aggressive osseous lesion or acute osseousabnormality. There is a large umbilical hernia containing fat andnondilated transverse colon.[facility] CenterAnti-Nuclear Antibody [id number] 19:20:33* Test Item Value Reference Range Interpretation Comme nts STORM Titer by IFA (test code = 8910926420) 1:80 STORM Pattern (test code = 2479880093) Speckled MAGDALENA (test code = MAGDALENA) Anti-nuclear antib odies are seen in a variety of autoimmune diseases and may also be seen in low titers in otherwise normal individuals without evidence of autoimmune disease. In general, a titer greater than or equal to 1:160 is considered significant. For further information, contact the appropriate Specialist. For additional STORM tests, refer to the Laboratory Test Directory. The specimen will be held for 7 days. [facility] CenterAnti-Nuclear Antibody [id number] 21:10:11* Test Item Value Reference Range Interpretation Comme nts STORM (test code = 4865046625) Positive Negative A MAGDALENA (test code = MAGDALENA) Negative: ?No Anti-Nuclear Antibodies detected by IFA. Positive: ?STORM IFA screen performed with a 1:80 dilution in adults and a 1:40 dilution in pediatrics. ?A titer is performed and reported separately when the STORM is "Positive" or when "Cytoplasmic staining is observed." Lab Interpretation (test code = 17418-4) Abnormal [facility] CenterUS Retroperitoneal [id number] 14:44:17 EXAM: US RETROPERITONEAL LIMITED HISTORY: 49 years-old Female with wan . TECHNIQUE: Ultrasound of kidneys was performed with grayscale and selectedcolor Doppler imaging. Curriculum Development Specialist images were obtained for the record. COMPARISON: None FINDINGS: Limited exam due to body habitus and bowel gas. KID NEYS:RIGHT:Length: Normal, 11.1 cm.Parenchyma: Normal renal cortical echogenicity and thickness. Nofocalsolid or cystic renal lesions are detected.Collecting System: No hydronephrosis.Other: None. LEFT:Length: Normal, 14.2 cm.Parenchyma:Normal renal cortical echogenicity and thickness. No focal solidor cystic renal lesions are detected.Collecting System: No hydronephrosis.Other: None. OTHER: Large masslike structure in the left side of the abdomen measuringup to 23.7 cm, difficult to assess due to body habitus and bowel gas.[facility] CenterPOCT GLUCOSE (AUTOMATED)2024-08-16 09:56:43* Test Item Value Reference Range Interpretation Comme [facility] POCT GLU (test code = 2415312347) 121 mg/dL 70-110 H Lab Interpretation (test cod e = 68394-0) Abnormal [facility] CenterC4 [id number] 20:23:42* Test Item Value Reference Range Interpretation Comme [facility] C4 (test code = 4629837847) 29 mg/dL 20-59 Lab Interpretation (test cod e = 28933-7) Normal [facility] CenterC3 Epzqfwytxo6141-04-44 19:46:11* Test Item Value Reference Range Interpretation Comme [facility] C3 (test code = 4619288805) 121 mg/dL 86-184 Lab Interpretation (test cod e = 69584-8) Normal [facility] CenterVitamin D, [id number] 19:17:32* Test Item Value Reference Range Interpretation Comme [facility] VIT D 25OH (test code = 58015-0) 22 ng/mL 25-80 L MAGDALENA (test code = MAGDALENA) Deficiency: <20 ng/mLInsufficiency: 20-24 ng/mLOptimal: 25-80 ng/mL Lab Interpretation (test code = 23948-0) Abnormal [facility] CenterTransthoracic echo (TTE) [id number] 18:22:37* Test Item Value Reference Range Interpretation Comme [facility] Height (test code = 2437662183) 64 in Weight (test code = 2710043008) 376 lbs Systolic BP (test code = 4832673244) 87 mmHg Diastolic BP (test code = 0414819394) 40 mmHg Heart Rate (test code = 4275081904) 86 bpm BSA (test code = 7706497041) 2.6 m2 LVOT stroke volume (test code = 6333863602) 91.5 cm3 EF(Teich) (test code = 0088503727) 66 % LVIDD (test code = 6879209496) 3.5 cm LVIDS (test code = 6459170111) 2.26 cm Left Ventricular End Systolic Volume by Teichholz Method (test code = 0817209) 17.3 mL Left Ventricular End Diastolic Volume by Teichholz Method (test code = 9769401) 50.7 mL IVS (test code = 0961217729) 0.89 cm LVPWD (test code = 9656515971) 1.04 cm LVOT diameter (test code = 7795493219) 1.99 cm LVOT area (test code = 4498492203) 3.1 cm2 FS (test code = 7669905791) 36 % LV RWT (test code = 6986691352) 0.59 LV mass (test code = 1506855095) 98.13 g LV Mass Index (test code = 6988431814) 37.7 g/m2 MV Peak E Hugo (test code = 8384143507) 143.2 cm/s MV Peak A Hugo (test code = 5086785718) 114 cm/s E/A ratio (test code = 9876028570) 1.26 ratio E wave decelartion time (test code = 0216862614) 0.27 s MV E/e' septal (test code = 5222931315) 11.2 cm/s LVOT peak hugo (test code = 2653901263) 164.6 cm/s LVOT mn grad (test code = 0916895473) 5.9 mmHg LA size (test code = 2529033760) 4.3 cm LAV(MOD-sp4) (test code = 5105732071) 47.5 mL Tapse (test code = 7200657503) 1.73 cm Aortic valve mean velocity (test code = 0494256822) 133.1 cm/s Ao peak hugo (test code = 2909523232) 215.7 cm/s Ao VTI (test code = 2436848636) 36.6 cm AV LVOT peak gradient (test code = 6629507043) 10.8 mmHg LVOT peak VTI (test code = 8536422014) 29.3 cm AV area by cont VTI (test code = 5123827469) 2.5 cm2 AV area peak hugo (test code = 5988391276) 2.4 cm2 LV V1 mean (test code = 0858402502) 115.7 cm/s Ao max PG (test code = 7089281539) 18.6 mm[Hg] MV Prop V (test code = 6014997870) 96.3 cm/s TR Peak Hugo (test code = 5087733174) 338.5 cm/s Triscuspid Valve Regurgitation Peak Gradient (test code = 0673979083) 45.8 mmHg Ao root diam (test code = 8939142408) 2.6 cm AV peak gradient (test code = 5946976976) 18.6 mmHg AV valve area (test code = 4794238845) 2.5 cm2 AV mean gradient (test code = 7714857279) 8.2 mmHg Aortic root (test code = 3710411774) 2.6 cm Ao root annulus (test code = 2100969419) 2.6 cm PW (test code = 0718144857) 1.04 cm 0.6-1.1 EF - 2D (test code = 30234219) 66 % Interventricular Septum Diastolic Thickness by 2D (test code = 9485674) 0.89 cm LA Volume Index (BP) (test code = 1477453665) 18.4 mL/m2 LA volume (BP) (test code = 5090632085) 47.1 mL LAV(MOD-sp2) (test code = 4552080975) 45.3 mL Radiology Study observation (narrative) (test code = 78531-4) MADGALENA (test code = MAGDALENA) ?Left?Ventricle: Left ventricle size is normal. Normal wall thickness. Normal wall motion. Hyperdynamic systolic function with a visually estimated EF of greater than 65%. Normal diastolic function. No LVOT obstruction at rest. max gradient 19.2 mmHg. No Valsalva performed. ?Right?Ventricle: Not well visualized. Right ventricle is grossly dilated. Normal systolic function. ?Tricuspid?Valve: Mild transvalvular regurgitation. Right ventricular systolic pressure is 45-50 mmHg + RA pressure. ?Pericardium: No pericardial effusion. ?Left?Atrium: Not well visualized. Left atrium size is normal. Left VentricleLeft ventricle size is normal. Normal wall thickness. Normal wall motion. Hyperdynamic systolic function with a visually estimated EF of greater than 65%. Normal diastolic function. No LVOT obstruction at rest. max gradient 19.2 mmHg. No Valsalva performed.Right VentricleNot well visualized. Right ventricle is grossly dilated. Normal systolic function.Left AtriumNot well visualized. Left atrium size is normal.Right AtriumNot well visualized.IVC/SVCIVC was not well visualized.Mitral ValveMitral valve structure is normal. Trace transvalvular regurgitation. No stenosis.Tricuspid ValveTricuspid valve structure is normal. Mild transvalvular regurgitation. Right ventricular systolic pressure is 45-50 mmHg + RA pressure.Aortic ValveAortic valve opens well. No hemodynamically significant .Pulmonic ValveNot well visualized. Trace transvalvular regurgitation. No stenosis.Ascending AortaNormal sized aortic root.PericardiumThe pericardium is normal. No pericardial effusion.Study DetailsStudy quality was technically limited. A complete echocardiogram was performed using 2D, color flow Doppler and spectral Doppler. The apical, parasternal, subcostal and suprasternal views were obtained. 3 mL of Optison ultrasound enhancing agent used. Technical difficulties due to patient's clinical status and patient's body habitus. [facility] CenterTroponin [id number] 17:39:11* Test Item Value Reference Range Interpretation Comme nts TROPONIN I (test code = 0438864022) 0.006 ng/mL <=0.034 MAGDALENA (test code = MAGDALENA) Reference (Normal) Range (defined by the 99th percentile reference limit): <= 0.034 ng/mL Note: Cardiac troponin begins to rise 3-4 hours after the onset of ischemia. Repeat in 4-6 hours if the sample was drawn within 3-4 hours of the onset of the symptom and found normal. Diagnosis of myocardial injury is made with acute changes in cTn concentrations with at least one serial sample above the 99th percentile upper reference limit (URL), taken together with the patient's clinical presentation. Biotin has been reported to cause a negative bias, interpret results relative to patient's use of biotin. Lab Interpretation (test code = 88802-3) Normal [facility] CenterFerritin Vokad2144-10-12 17:19:49* Test Item Value Reference Range Interpretation Comme nts FERRITIN (test code = 1316336532) 278 ng/mL 11.0-264.0 H MAGDALENA (test code = MAGDALENA) Biotin has been reported to cause a negative bias, interpret results relative to patient's use of biotin. Lab Interpretation (test code = 64368-7) Abnormal [facility] CenterD-Dgjvt8556-33-06 17:10:25* Test Item Value Reference Range Interpretation Comments D-DIMER (test code = 5737789031) 1.49 See_Comment H [Automated message] The system which generated this result transmitted reference range: <0.50 ?g/mL (FEU). The reference range was not used to interpret this result as normal/abnormal. MAGDALENA (test code = MAGDALENA) This test may be used in conjunction with a clinical pretest probability (PTP) assessment model to exclude venous thromboembolism (VTE) in patients suspected of deep venous thrombosis (DVT) and pulmonary embolism (PE) A D-Dimer value less than 0.50 ?g/ml (FEU) has a negative predicative value of 96 to 100% (95% CI)and 97 to 100% (95% CI) as an aid in the diagnosis of deep vein thrombosis (DVT) and pulmonary embolism when there is low or moderate pretest probability of PE or DVT. D-Dimer values are expressed in initial fibrinogen equivalent units (FEU)" The assay results should be used with other information, including the clinical context, in forming a diagnosis. Lab Interpretation (test code = 58493-6) Abnormal [facility] CenterIntact PTH Calcium Dpcoh3983-14-68 17:05:46* Test Item Value Reference Range Interpretation Comme nts PTH-INTACT (test code = 0978306919) 91.4 pg/mL 12.0-88.0 H PTH-CA Interpretation (test code = 2309194263) Further clinical data needed for interpretation. CALCIUM (test code = 7567623348) 8.1 mg/dL 8.6-10.6 L Lab Interpretation (test code = 34962-3) Abnormal [facility] CenterIron Hxnzl7709-29-88 16:52:43* Test Item Value Reference Range Interpretation Comme nts IRON (test code = 1372032389) 29 ug/dL 50-160 L TIBC (test code = 9176449190) 220 ug/dL 250-410 L % FE SAT (test code = 8817804652) 13 % 20-50 L Lab Interpretation (test cod e = 81934-6) Abnormal [facility] CenterCreatine Rdejmc5244-54-46 16:34:45* Test Item Value Reference Range Interpretation Comme nts CK (test code = 2233791985) 628 U/L 33-194 H Lab Interpretation (test cod e = 54957-0) Abnormal [facility] CenterXR Chest 1 [id number] 14:12:32ORDERING PHYSICIAN: ALDAIR STEVENSON. HISTORY: ANTONIO on increased oxygen TECHNIQUE: AP. COMPARISON: None. FINDINGS: Support equipment: ?None. Lungs: ?No focal consolidation is seen. Pleura: ?No effusion or pleural disease is seen. ?No pneumothorax. Mediastinum/Alia: ?No masses or adenopathy. Heart: ?The heart is not enlarged. Other: ?No acute osseous abnormality is seen.[facility] CenterABORH Confirmation (Lab Only)2024-08-15 03:39:00* Test Item Value Reference Range Interpretation Comme nts ABO & RH (test code = 20) O Positive [facility] CenterType and Screen - The Type and Screen expires at midnight on the 3rd day after it was drawn. A current Type and Screen is required when RBCs are requested. For all other blood products, a Type and Scr een performed during the current hospitalizati...2024-08-15 01:41:00* Test Item Value Reference Range Interpretation Comme nts ABO & RH (test code = 20) O POSITIVE IAT (test code = 1185) Negative [facility] T4 and TSH panel - Serum or Plasma 2021-12-16 00:00:00* Test Item Value Reference Range Interpretation Comme nts Thyrotropin [Units/volume] i n Serum or Plasma by Detection limit <= 0.005 mIU/L (test code = 32613-4) 1.550 uIU/mL 0.450-4.500 Thyroxine (T4) free [Mass/volume] in Serum or Plasma (test code = 3024-7) 1.31 NG/dL 0.82-1.77 [facility] HospitalFollitropin and Lutropin panel [Units/volume] - Serum or [id number] 00:00:00* Test Item Value Reference Range Interpretation Comme nts Lutropin [Units/volume] in S myles or Plasma (test code = 68006-3) 4.8 mIU/mL Follitropin [Units/volume] i n Serum or Plasma (test code = 37271-4) 4.8 mIU/mL [facility] ProgramTestosterone free and total panel [Mass/volume] - Serum or [id number] 00:00:00* Test Item Value Reference Range Interpretation Comme nts Testosterone [Mass/volume] i n Serum or Plasma (test code = 2986-8) 11 NG/dL 4-50 Testosterone Free [Mass/volu me] in Serum or Plasma (test code = 2991-8) 1.1 pg/mL 0.0-4.2 [facility] HospitalHemoglobin A1c/Hemoglobin.total in [id number] 00:00:00* Test Item Value Reference Range Interpretation Comme nts Hemoglobin A1c/Hemoglobin.to brenda in Blood (test code = 4548-4) 5.4 % 4.8-5.6 [facility] ProgramEstradiol (E2) [Mass/volume] in Serum or Pdxwmg9094-37-88 00:00:00* Test Item Value Reference Range Interpretation Comme nts Estradiol (E2) [Mass/volume] in Serum or Plasma (test code = 2243-4) 37.7 pg/mL [facility] ProgramInsulin [Units/volume] in Serum or [id number] 00:00:00* Test Item Value Reference Range Interpretation Comme nts Insulin [Units/volume] in Se rum or Plasma (test code = 12793-3) 44.8 uIU/mL 2.6-24.[address] [facility] HospitalUrinalysis complete W Reflex Culture panel - [id number] 00:00:00* Test Item Value Reference Range Interpretation Comme nts Specific gravity of Urine (t est code = 2965-2) tnp pH of Urine by Test strip (t est code = 5803-2) tnp Color of Urine (test code = 5778-6) p d driver Appearance of Urine (test co de = 5767-9) p d driver Leukocyte esterase [Presence ] in Urine by Test strip (test code = 5799-2) p d driver Protein [Presence] in Urine by Test strip (test code = 82354-2) tnp Glucose [Presence] in Urine (test code = 2349-9) tnp Ketones [Presence] in Urine by Test strip (test code = 2514-8) tnp Hemoglobin [Presence] in Uri ne by Test strip (test code = 5794-3) p d driver Bilirubin.total [Presence] i n Urine by Test strip (test code = 5770-3) p d driver Urobilinogen [Mass/volume] i n Urine by Test strip (test code = 70296-6) p d driver Nitrite [Presence] in Urine by Test strip (test code = 5802-4) p d driver Microscopic observation [Mary ntifier] in Urine sediment by Light microscopy (test code = 47116-4) p d driver urinalysis reflex (test code = urinalysis reflex) p d driver [facility] Hospitalrequest flrkjvt1785-32-00 00:00:00* Test Item Value Reference Range Interpretation Comme nts request problem (test code = request problem) tnp [facility] HospitalUrinalysis macro (dipstick) panel - [id number] 16:30:49* Test Item Value Reference Range Interpretation Comme nts Leukocytes (test code = Leukocytes) 3+ Nitrite (test code = Nitrite) - Urobilinogen (test code = Urobilinogen) 1+ Protein (test code = Protein) 2+ pH (test code = pH) 6.0 Blood (test code = Blood) - Specific [place] (test code = Specific [place]) 1.025 Ketone (test code = Ketone) +- Bilirubin (test code = Bilirubin) 1+ Glucose (test code = Glucose) - Appearance (test code = Appearance) clear Color (test code = Color) dark yellow [facility] ProgramCytology report of Cervical or vaginal smear or scraping Cyto stain.thin gknv9136-20-02 00:00:00* Test Item Value Reference Range Interpretation Comme nts age gdln acog testing (test code = age gdln acog testing) 30-65 Cytology report of Cervical or vaginal smear or scraping Cyto stain (test code = 49547-9) comment Statement of adequacy [Interpretation] of Cervical or vaginal smear or scraping by Cyto stain (test code = 37975-9) comment Home Health Care Physician who read Cyto sta in of Cervical or vaginal smear or scraping (test code = 93736-7) comment Microscopic observation [Mary ntifier] in Unspecified specimen by Other stain (test code = 28833-6) . note: (test code = note:) comment Cytology report of Cervical or vaginal smear or scraping Cyto stain.thin prep (test code = 88631-1) comment Human papilloma virus 16+18+31+33+35+39+45+51+52+56+58+59+ 66+68 DNA [Presence] in Cervix by Probe with signal amplification (test code = 90612-4) negative negative Chlamydia trachomatis rRNA [Presence] in Cervix by JUNITO with probe detection (test code = 27193-7) negative negative Neisseria gonorrhoeae rRNA [Presence] in Cervix by JUNITO with probe detection (test code = 01649-8) negative negative Trichomonas vaginalis rRNA [Presence] in Unspecified specimen by JUNITO with probe detection (test code = 12064-2) negative negative [facility] ProgramFree T4 and TSH panel - Serum or Tzwlgn9128-58-09 00:00:00* Test Item Value Reference Range Interpretation Comme nts Thyrotropin [Units/volume] i n Serum or Plasma by Detection limit <= 0.005 mIU/L (test code = 84722-8) 1.050 uIU/mL 0.450-4.500 Thyroxine (T4) free [Mass/volume] in Serum or Plasma (test code = 3024-7) 1.23 NG/dL 0.82-1.77 [facility] HospitalCBC W Auto Differential panel - Blood 2021-02-17 00:00:00* Test Item Value Reference Range Interpretation Comme nts Leukocytes [#/volume] in Blo od by Automated count (test code = 6690-2) 5.0 x10e3/uL 3.4-10.8 Erythrocytes [#/volume] in Blood by Automated count (test code = 789-8) 4.39 x10e6/uL 3.77-5.28 Hemoglobin [Mass/volume] in Blood (test code = 718-7) 10.3 g/dL 11.1-15.9 L Hematocrit [Volume Fraction] of Blood by Automated count (test code = 4544-3) 34.5 % 34.0-46.6 MCV [Entitic volume] by Automated count (test code = 787-2) 79 fL 79-97 MCH [Entitic mass] by Automa js count (test code = 785-6) 23.5 pg 26.6-33.0 L MCHC [Mass/volume] by Automa js count (test code = 786-4) 29.9 g/dL 31.5-35.7 L Erythrocyte distribution wid th [Ratio] by Automated count (test code = 788-0) 15.3 % 11.7-15.4 Platelets [#/volume] in Bloo d by Automated count (test code = 777-3) 285 x10e3/uL 150-450 Neutrophils/100 leukocytes i n Blood by Automated count (test code = 770-8) 62 % not estab. Lymphocytes/100 leukocytes i n Blood by Automated count (test code = 736-9) 24 % not estab. Monocytes/100 leukocytes in Blood by Automated count (test code = 5905-5) 12 % not estab. Eosinophils/100 leukocytes i n Blood by Automated count (test code = 713-8) 1 % not estab. Basophils/100 leukocytes in Blood by Automated count (test code = 706-2) 0 % not estab. immature cells (test code = immature cells) p d driver Neutrophils [#/volume] in Bl ood by Automated count (test code = 751-8) 3.1 x10e3/uL 1.4-7.0 Lymphocytes [#/volume] in Bl ood by Automated count (test code = 731-0) 1.2 x10e3/uL 0.7-3.1 Monocytes [#/volume] in Bloo d by Automated count (test code = 742-7) 0.6 x10e3/uL 0.1-0.9 Eosinophils [#/volume] in Bl ood by Automated count (test code = 711-2) 0.1 x10e3/uL 0.0-0.4 Basophils [#/volume] in Bloo d by Automated count (test code = 704-7) 0.0 x10e3/uL 0.0-0.2 Immature granulocytes/100 leukocytes in Blood by Automated count (test code = 74293-8) 1 % not estab. Immature granulocytes [#/volume] in Blood by Automated count (test code = 42732-7) 0.0 x10e3/uL 0.0-0.1 Nucleated erythrocytes/100 leukocytes [Ratio] in Blood by Automated count (test code = 42528-0) p d driver Morphology [Interpretation] in Blood Narrative (test code = 91357-6) p d driver [facility] ProgramComprehensive metabolic 2000 panel - Serum or Oynirl7992-54-94 00:00:00* Test Item Value Reference Range Interpretation Comme nts Glucose [Mass/volume] in Ser um or Plasma (test code = 2345-7) 99 mg/dL 65-99 Urea nitrogen [Mass/volume] in Serum or Plasma (test code = 3094-0) 8 mg/dL 6-24 Creatinine [Mass/volume] in Serum or Plasma (test code = 2160-0) 0.94 mg/dL 0.57-1.00 Glomerular filtration rate/1.73 sq M.predicted among non-blacks [Volume Rate/Area] in Serum, Plasma or Blood by Creatinine-based formula (CKD-EPI) (test code = 18308-8) 72 mL/min/1.73 >59 Glomerular filtration rate/1.73 sq M.predicted among blacks [Volume Rate/Area] in Serum, Plasma or Blood by Creatinine-based formula (CKD-EPI) (test code = 00041-7) 84 mL/min/1.73 >59 Urea nitrogen/Creatinine [Ma ss Ratio] in Serum or Plasma (test code = 3097-3) 9 9-23 Sodium [Moles/volume] in Ser um or Plasma (test code = 2951-2) 138 mmol/L 134-144 Potassium [Moles/volume] in Serum or Plasma (test code = 2823-3) 4.9 mmol/L 3.5-5.2 Chloride [Moles/volume] in Serum or Plasma (test code = 2075-0) 97 mmol/L 96-106 Carbon dioxide, total [Moles/volume] in Serum or Plasma (test code = 2027-9) 25 mmol/L 20-29 Calcium [Mass/volume] in Ser um or Plasma (test code = 29353-6) 9.4 mg/dL 8.7-10.2 Protein [Mass/volume] in Ser um or Plasma (test code = 2885-2) 8.6 g/dL 6.0-8.5 H Albumin [Mass/volume] in Ser um or Plasma (test code = 1751-7) 4.0 g/dL 3.8-4.8 Globulin [Mass/volume] in Serum by calculation (test code = 59278-9) 4.6 g/dL 1.5-4.5 H Albumin/Globulin [Mass Ratio ] in Serum or Plasma (test code = 1759-0) 0.9 1.2-2.2 L Bilirubin.total [Mass/volume ] in Serum or Plasma (test code = 1975-2) 0.3 mg/dL 0.0-1.2 Alkaline phosphatase [Enzymatic activity/volume] in Serum or Plasma (test code = 6768-6) 78 IU/L 44-121 Aspartate aminotransferase [Enzymatic activity/volume] in Serum or Plasma (test code = 1920-8) 10 IU/L 0-40 Alanine aminotransferase [Enzymatic activity/volume] in Serum or Plasma (test code = 1742-6) 6 IU/L 0-32 [facility] 1996 panel - Serum or Plasma 2021-02-17 00:00:00* Test Item Value Reference Range Interpretation Comme nts Cholesterol [Mass/volume] in Serum or Plasma (test code = 2093-3) 158 mg/dL 100-199 Triglyceride [Mass/volume] i n Serum or Plasma (test code = 2571-8) 314 mg/dL 0-149 H Cholesterol in HDL [Mass/vol ume] in Serum or Plasma (test code = 2085-9) 14 mg/dL >39 L Cholesterol in VLDL [Mass/vo lume] in Serum or Plasma by calculation (test code = 72117-5) 53 mg/dL 5-40 H Cholesterol in LDL [Mass/vol ume] in Serum or Plasma by calculation (test code = 12982-6) 91 mg/dL 0-99 Laboratory comment [Text] in Report Narrative (test code = 62308-0) [facility] A[facility]/Hemoglobin.total in [id number] 00:00:00* Test Item Value Reference Range Interpretation Comme nts Hemoglobin A1c/Hemoglobin.to brenda in Blood (test code = 4548-4) 5.9 % 4.8-5.[address] [facility] HospitalReagin Ab [Presence] in Serum by RPR 2021-02-17 00:00:00* Test Item Value Reference Range Interpretation Comme nts Reagin Ab [Presence] in Serum by RPR (test code = 45332-0) reactive non reactive A Reagin Ab [Titer] in Serum by RPR (test code = 79527-6) 1:256 See_Comment H [Automated messa ge] The system which generated this result transmitted reference range: nonrea<1:1. The reference range was not used to interpret this result as normal/abnormal. Treponema pallidum IgG+IgM Ab [Presence] in Serum by Immunoassay (test code = 47734-7) reactive non reactive A [facility]25-Hydroxyvitamin D3+25- Hydroxyvitamin D2 [Mass/volume] in Serum or [id number] 00:00:00* Test Item Value Reference Range Interpretation Comme nts 25-Hydroxyvitamin D3+25-Hydroxyvitamin D2 [Mass/volume] in Serum or Plasma (test code = 87249-7) 12.7 NG/mL 30.0-100.[address] [facility] HospitalHIV 1+2 Ab+HIV1 p24 Ag [Presence] in Serum or Plasma by Wopehbfsqrh6025-04-49 00:00:00* Test Item Value Reference Range Interpretation Comme nts HIV 1+2 Ab+HIV1 p24 Ag [Presence] in Serum or Plasma by Immunoassay (test code = 99032-9) non reactive non reactive [facility] HospitalHepatitis B virus surface Ag [Presence] in Serum or Plasma by Ucswhebqhdq4422-05-31 00:00:00* Test Item Value Reference Range Interpretation Comme nts Hepatitis B virus surface Ag [Presence] in Serum or Plasma by Immunoassay (test code = 5196-1) negative negative [facility] Hospitalcardiovascular assessment panel, [id number] 00:00:00* Test Item Value Reference Range Interpretation Comme nts Interpretation and review of laboratory results (test code = 68573-6) note Report (test code = 18928-2) . [facility] Outreach ProgramUrinalysis complete W Reflex Culture panel - [id number] 00:00:00* Test Item Value Reference Range Interpretation Comme nts Specific gravity of Urine (t est code = 2965-2) tnp pH of Urine by Test strip (t est code = 5803-2) tnp Color of Urine (test code = 5778-6) p d driver Appearance of Urine (test co de = 5767-9) p d driver Leukocyte esterase [Presence ] in Urine by Test strip (test code = 5799-2) p d driver Protein [Presence] in Urine by Test strip (test code = 30034-8) tnp Glucose [Presence] in Urine (test code = 2349-9) tnp Ketones [Presence] in Urine by Test strip (test code = 2514-8) tnp Hemoglobin [Presence] in Uri ne by Test strip (test code = 5794-3) p d driver Bilirubin.total [Presence] i n Urine by Test strip (test code = 5770-3) p d driver Urobilinogen [Mass/volume] i n Urine by Test strip (test code = 45728-3) p d driver Nitrite [Presence] in Urine by Test strip (test code = 5802-4) p d driver Microscopic observation [Mary ntifier] in Urine sediment by Light microscopy (test code = 23744-5) p d driver urinalysis reflex (test code = urinalysis reflex) p d driver [facility] Outreach Programrequest [id number] 00:00:00* Test Item Value Reference Range Interpretation Comme nts request problem (test code = request problem) tnp [facility] Out[facility] ProgramBacteria identified in Urine by [id number] 00:00:00* Test Item Value Reference Range Interpretation Comme nts Bacteria identified in Urine by Culture (test code = 630-4) comment [facility] ProgramBacteria identified in Urine by [id number] 00:00:00* Test Item Value Reference Range Interpretation Comme nts Bacteria identified in Urine by Culture (test code = 630-4) comment A [facility] Out[facility] ProgramSARS coronavirus 2 RNA [Presence] in Respiratory specimen by JUNITO with probe [id number] 00:00:00* Test Item Value Reference Range Interpretation Comme nts SARS coronavirus 2 RNA [Presence] in Respiratory specimen by JUNITO with probe detection (test code = 66670-1) not detected not detected [facility] HospitalFr T4 and TSH panel - Serum or [id number] 00:00:00* Test Item Value Reference Range Interpretation Comme nts Thyrotropin [Units/volume] i n Serum or Plasma by Detection limit <= 0.005 mIU/L (test code = 45975-0) 0.731 uIU/mL 0.450-4.500 Thyroxine (T4) free [Mass/volume] in Serum or Plasma (test code = 3024-7) 1.10 NG/dL 0.82-1.77 [facility] W Auto Differential panel - Blood 2019-10-01 00:00:00* Test Item Value Reference Range Interpretation Comme nts Leukocytes [#/volume] in Blo od by Automated count (test code = 6690-2) 7.1 x10e3/uL 3.4-10.8 Erythrocytes [#/volume] in Blood by Automated count (test code = 789-8) 5.01 x10e6/uL 3.77-5.28 Hemoglobin [Mass/volume] in Blood (test code = 718-7) 13.4 g/dL 11.1-15.9 Hematocrit [Volume Fraction] of Blood by Automated count (test code = 4544-3) 42.3 % 34.0-46.6 MCV [Entitic volume] by Automated count (test code = 787-2) 84 fL 79-97 MCH [Entitic mass] by Automa js count (test code = 785-6) 26.7 pg 26.6-33.0 MCHC [Mass/volume] by Automa js count (test code = 786-4) 31.7 g/dL 31.5-35.7 Erythrocyte distribution wid th [Ratio] by Automated count (test code = 788-0) 13.8 % 11.7-15.4 Platelets [#/volume] in Bloo d by Automated count (test code = 777-3) 324 x10e3/uL 150-450 Neutrophils/100 leukocytes i n Blood by Automated count (test code = 770-8) 66 % not estab. Lymphocytes/100 leukocytes i n Blood by Automated count (test code = 736-9) 26 % not estab. Monocytes/100 leukocytes in Blood by Automated count (test code = 5905-5) 7 % not estab. Eosinophils/100 leukocytes i n Blood by Automated count (test code = 713-8) 1 % not estab. Basophils/100 leukocytes in Blood by Automated count (test code = 706-2) 0 % not estab. immature cells (test code = immature cells) p d driver Neutrophils [#/volume] in Bl ood by Automated count (test code = 751-8) 4.6 x10e3/uL 1.4-7.0 Lymphocytes [#/volume] in Bl ood by Automated count (test code = 731-0) 1.8 x10e3/uL 0.7-3.1 Monocytes [#/volume] in Bloo d by Automated count (test code = 742-7) 0.5 x10e3/uL 0.1-0.9 Eosinophils [#/volume] in Bl ood by Automated count (test code = 711-2) 0.1 x10e3/uL 0.0-0.4 Basophils [#/volume] in Bloo d by Automated count (test code = 704-7) 0.0 x10e3/uL 0.0-0.2 Immature granulocytes/100 leukocytes in Blood by Automated count (test code = 99418-8) 0 % not estab. Immature granulocytes [#/volume] in Blood by Automated count (test code = 90837-8) 0.0 x10e3/uL 0.0-0.1 Nucleated erythrocytes/100 leukocytes [Ratio] in Blood by Automated count (test code = 87891-8) p d driver Morphology [Interpretation] in Blood Narrative (test code = 18412-7) p d driver [facility] Outreach ProgramComprehensive metabolic 2000 panel - Serum or [id number] 00:00:00* Test Item Value Reference Range Interpretation Comme nts Glucose [Mass/volume] in Ser um or Plasma (test code = 2345-7) 103 mg/dL 65-99 H Urea nitrogen [Mass/volume] in Serum or Plasma (test code = 3094-0) 14 mg/dL 6-24 Creatinine [Mass/volume] in Serum or Plasma (test code = 2160-0) 0.89 mg/dL 0.57-1.00 Glomerular filtration rate/1.73 sq M.predicted among non-blacks [Volume Rate/Area] in Serum, Plasma or Blood by Creatinine-based formula (CKD-EPI) (test code = 09861-4) 78 mL/min/1.73 >59 Glomerular filtration rate/1.73 sq M.predicted among blacks [Volume Rate/Area] in Serum, Plasma or Blood by Creatinine-based formula (CKD-EPI) (test code = 86486-6) 90 mL/min/1.73 >59 Urea nitrogen/Creatinine [Ma ss Ratio] in Serum or Plasma (test code = 3097-3) 16 9-23 Sodium [Moles/volume] in Ser um or Plasma (test code = 2951-2) 138 mmol/L 134-144 Potassium [Moles/volume] in Serum or Plasma (test code = 2823-3) 4.9 mmol/L 3.5-5.2 Chloride [Moles/volume] in Serum or Plasma (test code = 5-0) 96 mmol/L 96-106 Carbon dioxide, total [Moles/volume] in Serum or Plasma (test code = 2027-9) 25 mmol/L 20-29 Calcium [Mass/volume] in Ser um or Plasma (test code = 59558-0) 11.1 mg/dL 8.7-10.2 H Protein [Mass/volume] in Ser um or Plasma (test code = 2885-2) 7.3 g/dL 6.0-8.5 Albumin [Mass/volume] in Ser um or Plasma (test code = 1751-7) 4.3 g/dL 3.8-4.8 Globulin [Mass/volume] in Serum by calculation (test code = 79760-4) 3.0 g/dL 1.5-4.5 Albumin/Globulin [Mass Ratio ] in Serum or Plasma (test code = 1759-0) 1.4 1.2-2.2 Bilirubin.total [Mass/volume ] in Serum or Plasma (test code = 1974-2) 0.3 mg/dL 0.0-1.2 Alkaline phosphatase [Enzymatic activity/volume] in Serum or Plasma (test code = 6768-6) 62 IU/L 39-117 Aspartate aminotransferase [Enzymatic activity/volume] in Serum or Plasma (test code = 1920-8) 14 IU/L 0-40 Alanine aminotransferase [Enzymatic activity/volume] in Serum or Plasma (test code = 1742-6) 10 IU/L 0-32 [facility] 1996 panel - Serum or Plasma 2019-10-01 00:00:00* Test Item Value Reference Range Interpretation Comme nts Cholesterol [Mass/volume] in Serum or Plasma (test code = 2093-3) 229 mg/dL 100-199 H Triglyceride [Mass/volume] i n Serum or Plasma (test code = 2571-8) 166 mg/dL 0-149 H Cholesterol in HDL [Mass/vol ume] in Serum or Plasma (test code = 2085-9) 63 mg/dL >39 Cholesterol in VLDL [Mass/vo lume] in Serum or Plasma by calculation (test code = 03769-3) 33 mg/dL 5-40 Cholesterol in LDL [Mass/vol ume] in Serum or Plasma by calculation (test code = 28329-5) 133 mg/dL 0-99 H Laboratory comment [Text] in Report Narrative (test code = 54834-5) p d driver [facility] HospitalHemoglobin A1c/Hemoglobin.total in [id number] 00:00:00* Test Item Value Reference Range Interpretation Comme nts Hemoglobin A1c/Hemoglobin.to brenda in Blood (test code = 4548-4) 5.1 % 4.8-5.6 [facility]cardi[facility] assessment panel, [id number] 00:00:00* Test Item Value Reference Range Interpretation Comme nts interpretation (test code = interpretation) note pdf (test code = pdf) . [facility] Procedure Notes Date/Time Note Provider Source 2024-10-01 13:30:00 Procedure(s): IR BIOPSY ABDOMEN RETROPERITONEAL PERCUTANEOUS WITH ULTRASOUND Patient recieved to Radiology for abdominal biopsy . Indication for procedure is intrabdominal mass Pt identified using name and . truck technician monitoring is Jen IR Faculty supervising is Dr. Godinez obtained consent as 415 Invasive procedure checklist completed at 1425 Time out completed at 1430 Pre-procedure vitals are: BP 104/77 HR 85 O2 96 Procedural vitals are: BP 145/88 HR 122 O2 96 BP 132/85 HR 87 O2 98 Post procedure vitals are: BP 141/76 HR 65 O2 98 Specimen: multiple specimens collected and Post procedure disposition remained in dept for 1 hour post bx BP 135/67 HR 79 O2 95 Esther Li [facility] 2024-10-01 13:30:00 VASCULAR AND INTERVENTIONAL RADIOLOGY PROCEDURE NOTE Pre-procedure diagnosis: Abdominal Mass Post-procedure diagnosis: Abdominal Mass Procedure: US-Guided Biopsy Anesthesia: Local Findings: US showed a large centrally necrotic mass in the left upper abdomen. US guided biopsy of the peripheral aspect of the mass was performed (6 x 18-G) cores. About 100 mL of dark brown fluid was also aspirated and sent for cytology. Complications: None Condition: Stable EBL: Minimal, < 5 cc Full dictated note to follow in PACS. T [facility] Notes Date/Time Note Provider Source 2024-10-13 16:06:51 Patient seen in office on 10/13/[address] Gagnon. Audelia Segundo RN [facility] 2024-10-13 15:15:00 Addended by: KEYON GAGNON MD on: 10/14/2024 10:11 AM Modules accepted: Orders [facility] 2024-10-07 13:32:06 Attempted to contact patient, no answer and voicemail box has not been set up yet. Audelia Segundo RN [facility] 2024-10-07 12:57:08 Results are non-diagnostic, I will discuss next steps at our upcomming visit. Keyon SELINA-SURGICAL ONCOLOGY STAFF [facility] 2024-10-06 15:46:46 Patient calling for results of recent biopsy of the abdomen results. Verified and pt informed of the following results: Component Ref Range & Units (hover) Final Diagnosis A. ABDOMEN, BIOPSY: - NECROTIC TISSUE ONLY, NON-DIAGNOSTIC - SEE COMMENT Will forward to Dr Gagnon for final review and recommendations. Audelia Segundo RN [facility] 2024-10-06 11:34:08 Patient called and stated she had a biopsy done on 10/01 and would like to know if the results are in. Please advise. Mar Matias [facility] 2024-09-24 11:59:02 Pt contacted by radiology and scheduled for 10/01/24 (date per pt request). Audelia Segundo RN [facility] 2024-09-24 10:50:34 Patient called and stated that she has been waiting for a call to get a biopsy scheduled and has not received a call and is wanting to know if she still has to have it done. Please advise Mar Matias [facility] 2024-09-23 12:30:00 Images from the original note were not included. BURN CLINIC NOTE: DATE: 09/23/2024 TIME: 1216 - 1400 Patient to burn clinic via walker for follow up of sherman to Lower extremity Right. Prior to visit, patient took no pain medication. Patient states their pre procedure score is 0; administered no pain medication per MAR. Dressings removed and wounds cleaned with mild soap and water. Wound/s to Lower extremity Right appear pseudo eschar and mady-wound assessment appears pink with serous drainage. . Patient states their intra-procedure pain score is 0. Wounds to Lower extremity Right dressed in Polymyco FMG; covered with open to air; and secured with tubigrip. Additional procedures performed none. Patient states their post-procedure pain score is 0. Patient taught sun protection/avoidance/ca re, limb elevation to reduce swelling, diet education (increase in protein), scar massage therapy, taught signs and symptoms of infection, and wound care instructions. Itch: Patient rates their itch score 0 over the past 7 days. Pain: During the past 7 days the patient states Pain is managed with vtqk-akq-sgaokyp pain medication.. Seen by PT/OT. Return to work: Patient has not been cleared to return to work. Patient to follow up Future Appointments Date Time Provider Department Center 10/07/2024 12:30 PM J2D KENNETH BURN CHAIR ALEJANDRINA Nash present. Patient left clinic via walker with self. Aleena Sandoval RN formerly [facility] 2024-09-23 12:30:00 Encounter addended by: Himanshu Nash MD on: 09/24/2024 12:46 PM Actions taken: Clinical Note Signed, Level of Service modified formerly [facility] 2024-09-22 15:05:19 Not Available Odilia Walter [facility] TELEMEDICINE Odilia Walter [facility]2025-07-14 15:05:19 <item> Pt reports she has been taking medications as prescribed: Kzocndcgki28 Pt denies any concerns today. Pt denies any COPD exacerbation. Pt05/09/24 Odilia Walter [facility]2025-07-14 15:05:19 Odilia Walter [facility]2025-07-14 15:05:19 Odilia Walter [facility]2025-07-14 15:05:19 Odilia Walter [facility]2025-07-01 12:30:00 Images from the original note were not included. BURN CLINIC NOTE: DATE: 09/09/2024 TIME: 1211 - 1300 Patient to burn clinic via walker for follow up of sherman to Lower extremity Right. Prior to visit, patient took no pain medication. Patient states their pre procedure score is 4; administered no pain medication per MAR. Dressings removed and wounds cleaned with mild soap and water. Wound/s to Lower extremity Right appear pseudo eschar, tender/painful, and pink and mady-wound assessment appears pink with serous drainage. Patient states their intra-procedure pain score is 0. Wounds to Lower extremity Right dressed in Polymyco FMG; covered with open to air; and secured with tubigrip. . Additional procedures performed none. Patient states their post-procedure pain score is 0. Patient taught limb elevation to reduce swelling, taught signs and symptoms of infection, and wound care instructions. Itch: Patient rates their itch score 0 over the past 7 days. Pain: During the past 7 days the patient states Pain is managed with dzbi-pbq-govmswm pain medication.. Seen by PT/OT. Return to work: Patient has not been cleared to return to work. Patient to follow up Future Appointments Date Time Provider Department Center 09/23/2024 12:30 PM J2D KENNETH BURN CHAIR ALEJANDRINA Blair present. Patient left clinic via wheelchair with self. Aleena Sandoval RN Aleena Sand[facility] RNDo[facility] HospitalFprwle2665-38-87 12:30:00 Encounter addended by: Kaiden Blair MD on: 09/10/2024 9:53 AM Actions taken: Cosign clinical note with attestation, Follow-up [facility] 12:30:00 Images from the original note were not included. BURN CLINIC NOTE: DATE: 09/02/2024 TIME: 1145 - 1330 Patient to burn clinic via wheelchair for follow up of sherman to Lower extremity Right. Prior to visit, patient took none . Patient states their pre procedure score is 0; administered no pain medication per MAR. Dressings removed and wounds cleaned with mild soap and water and Vashe. Wound/s to Lower extremity Right appear pseudo eschar, red, and pink and mady-wound assessment appears red and pink with NO drainage. Patient states their intra-procedure pain score is 0. Wounds to Lower extremity Right dressed in Polymyco FMG and Aquaphor to healed; covered with open to air; and secured with tubigrip. Patient states their post-procedure pain score is 0. Patient taught sun protection/avoidance/care and wound care instructions. Itch: Patient rates their itch score 0 over the past 7 days. Pain: During the past 7 days the patient states I have not experienced pain.. Seen by PT/OT. Patient to follow up on Future Appointments Date Time Provider Department Center 09/02/2024 4:00 PM Room, Naa-Occup Therapy Tub TIGRE Janny Chatman 09/08/2024 3:00 PM Keyon Gagnon MD [facility]KJSGON[facility] Specialt 09/09/2024 12:30 PM J2D KENNETH BURN CHAIR ALEJANDRINA Blair present. Patient left clinic via wheelchair with transportation. Indu Stevens [facility]72 09:02:25Not Dejuan Walter [facility]2025-06-23 09:02:25 Odilia Walter [facility]2025-06-23 09:02:25 <item> Pt reports she has been taking medications as prescribed: Hrnckgvgzg86 Pt denies any concerns today. Pt denies any COPD exacerbation. Pt05/09/24 Odilia Walter [facility]2025-06-23 09:02:25 Odilia [facility] CDAKERJWIZLU5941-29-70 09:02:25 Odilia [facility] PFTSOXZCGCWI2983-34-93 09:02:25 Odilia [facility] JHLULBPNBLDZ7266-11-84 09:48:29Not AvailableOdilia Walter [facility] EHXBUJDDCUJI6552-53-33 09:48:29 Odilia Walter [facility] YODISSIMQQVO5592-81-04 09:48:29 <item> Pt reports she has been taking medications as prescribed: Rudtmoehwz39 Pt denies any concerns today. Pt denies any COPD exacerbation. Pt05/09/24 Odilia Walter [facility] EHNQAZCQCIFX3166-97-82 09:48:29 Oidlia Walter [facility] ULFXOEAKGVMF5497-19-09 09:48:29 Odilia Walter [facility] KTEGSVUTZJDX6348-80-15 09:48:29 Odilia Walter [facility] MROXMNASAVSV4390-41-62 10:51:47Not AvailableVervictorina Walter [facility] LGWNDAJAOPPB6484-20-79 10:51:47 Odilia Walter [facility] OQPGFAGPNOQJ5554-96-44 10:51:47 <item> Pt reports she has been taking medications as prescribed: Qozpudoitq58 Pt denies any concerns today. Pt denies any COPD exacerbation. Pt05/09/24 Odilia Walter [facility] UPUIEHGYDOGT6953-37-46 10:51:47 Odilia Walter [facility] SKOHANOTNTGQ9714-10-30 10:51:47 Odilia Walter [facility] NMQLTJUMUJDC0554-35-98 10:51:47 Odilia Walter [facility] PKAMYZOTRYIV9200-94-58 09:03:15Not AvailableOdilia Walter [facility] HUREZBYJMRSN0124-55-20 09:03:15 Odilia Walter [facility] ZWSYSQZLOSBG5710-67-17 09:03:15 <item> Pt reports she has been taking medications as prescribed: Otddzcymhs00 Pt denies any concerns today. Pt denies any COPD exacerbation. Pt05/09/24 Odilia Walter [facility] AHCHNGYFHTWJ4651-40-88 09:03:15 Odilia Walter [facility] JNJTCTYHFNZB7994-24-48 09:03:15 Odilia Walter [facility] JWMGAJXRSTVW9750-73-81 09:03:15 Odilia Walter [facility] GJTVGQJDNQFD3701-66-88 12:14:13Not AvailableVeronicmarisa Walter [facility] WQAHZDFZLWHM7432-92-41 12:14:13 Odilia Walter [facility] UCLHNHWYQRRD4313-14-68 12:14:13 <item> Pt reports she has been taking medications as prescribed: Nrdrpnrico88 Pt denies any concerns today. Pt denies any COPD exacerbation. Pt05/09/24 Odilia Walter [facility] LBPJGXPEAROL8662-56-20 12:14:13 Odilia Walter [facility] AJFMYDDPVOEZ0907-38-57 12:14:13 Odilia Walter [facility] RCDIJZTNPNGH5792-69-53 12:14:13 Odilia Walter [facility] FGTTNMHKETGY9125-26-76 09:58:02Not AvailableVeronicmarisa Walter [facility] XCJZNUKNCDTJ7959-84-51 09:58:02 Odilia Walter [facility] CNBIZIBRCLBP8698-98-80 09:58:02 <item>05/09/24 Odilia Walter [facility] WAPFBMRPFQOI8458-37-15 09:58:02 Odilia Walter [facility] GQHDIHNDQCNB9509-63-62 09:58:02 Odilia Walter [facility] JLJAMNKXYGGU0807-44-39 09:58:02 Odilia Walter [facility] ROCZIUBVGLMX1912-19-81 14:25:36Not AvailableVeronicmarisa Gonzales Jose Angel [facility] JKRTPVAFVOAO9532-65-81 14:25:36 Odilia Walter [facility] IIDEWWUKEGSD3197-69-20 14:25:36 Odilia Walter [facility] NRLAFUWKPBYD9989-72-77 14:25:36 Odilia Walter [facility] HSCOQZABRMCN4312-41-77 14:25:36 Odilia Walter [facility] MYQJKSBQKGNC3163-98-25 14:25:36No InformationVervictorina Walter [facility] PRCMAEYZNFRF8122-92-91 15:23:28 Not AvailableDonavanmarisa Gonzales Jose Angel [facility] NALGRTDGYLBT5513-25-92 15:23:28 Odilia Walter [facility] [id number] 15:23:28 Odilia Walter [facility] [id number] 15:23:28 Odilia Walter [facility] [id number] 15:23:28 Odilia Walter [facility] [id number] 15:23:28No InformationOdilia Christian Jose Angel [facility] [id number] 09:00:40 Not AvailableOdilia Walter [facility] [id number] 09:00:40 Odilia Walter [facility] [id number] 09:00:40 Odilia Walter [facility] [id number] 09:00:40 Odilia Walter [facility] [id number] 09:00:40 Odilia Walter [facility] [id number] 09:00:40No InformationDonavanmarisa Walter [facility] [id number] 22:38:36 No ResultsTexBronson Battle [facility] HospitalSxqjez5509-70-36 22:38:36No ResultsTexBronson Battle Creek HospitalDpqirh4064-32-05 22:38:36Thu Jan 11 08:00:00 EDT 3: Family- "I go out with my daughter. She visits me every couple of days." [facility]Br[facility] HospitalRidylw6648-24-79 17:20:40Not AvailableOdilia Walter FIBER ARTIST [facility] [id number] 17:20:40 Odilia Gonzales Jose Angel [facility] [id number] 17:20:40 Odilia Walter [facility] [id number] 17:20:40 Odilia Walter [facility] [id number] 17:20:40 Odilia Walter [facility] [id number] 17:20:40No InformationOdilia Walter [facility] [id number] 03:34:23 No ResultsHEATHER PINAEALTexana Tkigax6969-41-21 03:34:23No ResultsNAYLEMarisa ENGLANDARREALTexana Wznrhm7669-78-29 03:34:23Thu Jan 11 08:00:00 EDT 2023: Family- "I go out with my daughter. She visits me every couple of days." HEATHER KEATINGTexana Ceghrj5151-11-37 10:59:46Not AvailableOdilia Walter [facility] [id number] 10:59:46 Odilia Walter [facility] [id number] 10:59:46 Odilia Walter [facility] [id number] 10:59:46 Odilia Walter [facility] [id number] 10:59:46 Odilia Walter [facility] [id number] 10:59:46No InformationOdilia Walter [facility] [id number] 09:11:31 Not AvailableOdilia Walter [facility] [id number] 09:11:31 Odilia Walter [facility] [id number] 09:11:31 Odilia Walter [facility] [id number] 09:11:31 Odilia Walter [facility] [id number] 09:11:31 Odilia Walter [facility] [id number] 09:11:31No InformationOdilia Walter [facility] [id number] 17:34:36 Not AvailableOdilia Walter [facility] [id number] 17:34:36 Odilia Walter [facility] [id number] 17:34:36 Odilia Walter [facility] [id number] 17:34:36 Odilia Walter [facility] [id number] 17:34:36 Odilia Walter [facility] [id number] 17:34:36No InformationOdilai Walter [facility] [id number] 15:37:09 Not AvailableVervictorina Walter [facility] [id number] 15:37:09 Odilia Walter [facility] [id number] 15:37:09 Odilia Walter [facility] [id number] 15:37:09 Odilia Walter [facility] [id number] 15:37:09 Odilia Walter [facility] [id number] 15:37:09No InformationVervictorina Walter [facility] [id number] 12:02:34 Not AvailableOdilia Walter [facility] [id number] 12:02:34 Odilia Walter [facility] [id number] 12:02:34 Odilia Walter [facility] [id number] 12:02:34 Odilia Walter [facility] [id number] 12:02:34 Odilia Walter [facility] [id number] 12:02:34No InformationVervictorina Walter [facility] [id number] 12:04:47 No Matthias Delgadillo DNP, [facility] [id number] 12:04:47 Darrian Delgadillo DNP, [facility] [id number] 12:04:47 Bertram Delgadillo DNP, [facility] [id number] 12:04:47 Bertram Delgadillo DNP, [facility] [id number] 12:04:47 Bertram Delgadillo DNP, [facility] [id number] 12:04:47 Bertram Delgadillo DNP, [facility] TELE[facility]ICINE
[2024-10-25 21:39] LABS: Absolute Lymphocytes (CBC) 1.9 K/uL (0.7-4.9); Hematocrit 37.1 % (36.0-45.0); Hemoglobin 12.2 g/dL (12.0-15.0); MCH 26.2 pg (27.0-35.0); MCHC 33.0 g/dL (32.0-36.0); MCV 79.5 fL (80-100); MPV 8.4 fL (7.6-11.3); Nucleated RBC Absolute Count 0.0 (0-0); Nucleated Red Blood Cells % 0.1 % (0-0); RBC Red Blood Cell Count 4.66 M/uL (3.86-4.86); White Blood Count 8.40 thou/uL (4.3-10.9)
[2024-10-25 21:46] LABS: PT Prothrombin Time 13.3 SECONDS (10-13.0); Protime INR 1.18
[2024-10-25] MEDS ORDERED: DIPHENHYDRAMINE 50 MG/ML VIAL ONE (21:48)
[2024-10-25] MEDS ORDERED: MECLIZINE HCL 12.5 MG TAB ONE (21:48)
[2024-10-25] MEDS ORDERED: METOCLOPRAMIDE 10 MG/2mL INJ ONE (21:48)
[2024-10-25 22:03] LABS: ALT/SGPT 18 U/L (13-56); Albumin 3.7 g/dL (3.4-5.0); Albumin/Globulin Ratio 0.8 (1.1-1.8); Alkaline Phosphatase 73 U/L (45-117); Anion Gap 14.0 mEq/L (5.0-15.0); BUN Blood Urea Nitrogen 11 mg/dL (7-18); Globulin 4.4 g/dL (2.3-3.5); Glucose Level 126 mg/dL (74-106); Lipase 19 U/L (13-75); Magnesium 2.0 mg/dL (1.6-2.4); NT PRO-BNP 83 pg/mL (<125); Potassium 4.0 mEq/L (3.5-5.1); Troponin High Sensitivity 4.3 pg/mL (<58.9)
[2024-10-25 22:12] LABS: AST/SGOT < 10 U/L (15-37); Bilirubin Indirect, Calculated 0.1 mg/dL (0.2-0.8)
--- NOTE | 2024-10-25 22:21 | RAD REPORT ---
Procedure: Chest Single View HISTORY: Vomiting COMPARISON: none FINDINGS: Lung bases are hazy. Upper lobes appear clear.. No significant pleural effusion noted. The heart is normal size. IMPRESSION: Lung bases are hazy probably secondary to overlying soft tissue rather than infiltrates. This should be confirmed with PA and lateral chest series
[2024-10-25] MEDS ORDERED: NA CHLORIDE 0.9% 500 ML ONE (23:44)
[2024-10-25] MEDS ORDERED: ONDANSETRON 4 MG/2 ML VIAL ONE (23:44)
[2024-10-25 23:47] LABS: Influenza A Ag Negative; Influenza B Ag Negative; SARS-CoV-2 Antigen Rapid Res Negative (Negative)
--- NOTE | 2024-10-26 00:45 | RAD REPORT ---
EXAM DESCRIPTION: Head Brain Wo Cont RadLex: CT HEAD WITHOUT IV CONTRAST CLINICAL HISTORY: 49 years Female; HEADACHE; Bed Name: 2 TECHNIQUE: Noncontrast CT head. All CT scans at this facility use dose modulation, iterative reconstruction, and/or weight based dosi ng when appropriate to reduce radiation dose to as low as reasonably achievable. COMPARISON: None. FINDINGS: Parenchyma: No acute hemorrhage, large territorial infarction, or mass effect. Ventricles and extra-axial spaces: Appropriate for age. Visualized paranasal sinuses: Opacification of the left frontal and left maxillary sinus. Mild mucosa l thickening in left ethmoid and sphenoid sinus. Mastoid air cells: Clear. Bones: No acute focal abnormality. Additional comment: None. IMPRESSION: 1. No acute intracranial findings. 2. Paranasal sinus disease as above. Electronically signed by: Mohamud Del Valle MD 10/26/2024 12:41 AM CDT RP TYG Due to temporary technical issues with the [employer] reporting system, reports are being meli d by the in-house radiologist without review as a courtesy to ensure prompt reporting the interpreting radiologist is fully responsible for the content of the report. Transcribed Date/Time: 10/26/2024 12:45 AM
--- NOTE | 2024-10-26 01:13 | EDPHYS ---
Physician Documentation [facility] Name: Abhishek Quezada Age: 49 yrs Sex: Female : 1975 Arrival Date: 10/25/2024 Time: 21:10 Bed 2 Private MD: Krishna Bailon ED Physician Hipolito Parrish HPI: 10/25 21:30 This 49 yrs old Female presents to ER via Wheelchair with complaints of Numbness, cp Nausea, Doesn't Feel Right. 21:30 The patient complains of pain to the left side forehead and behind left eye. The cp patient describes the headache as aching, a pressure. Onset: The symptoms/episode began/occurred last night. 21:30 Associated signs and symptoms: Pertinent positives: nausea, numbness of left eye and cp left jainism. 21:30 Severity of symptoms: in the emergency department the pain is unchanged, despite home cp interventions. 21:30 Patient reports headache and nausea started last evening after drinking alcoholic cp daiquiris . 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 - Infectious Disease History:: Denies. - Social history:: Smoking status: Reported history of juuling and/or vaping. Patient uses alcohol, but reports only rare drinking. Patient/guardian denies using street drugs. ROS: 21:35 Constitutional: Negative for body aches, chills, fever, poor PO intake, cp 21:35 Eyes: Negative for discharge, redness, vision loss, cp 21:35 Cardiovascular: Negative for chest pain, edema, palpitations, 21:35 Respiratory: Negative for cough, shortness of breath, wheezing, 21:35 Abdomen/GI: Positive for nausea, Negative for abdominal pain, vomiting, diarrhea, constipation, 21:35 Skin: Negative for cellulitis, rash, 21:35 Neuro: Positive for headache, numbness, of the left side of forehead and behind left eye, Negative for altered mental status, weakness, 21:35 All other systems are negative, Exam: 21:40 Constitutional: The patient appears in no acute distress, alert, awake, cp non-diaphoretic, non-toxic, well developed, well nourished, obese, uncomfortable, 21:40 Head/Face: Normocephalic, atraumatic. cp 21:40 Eyes: Periorbital structures: appear normal, Pupils: equal, round, and reactive to light and accomodation, Extraocular movements: intact throughout, Conjunctiva: normal, no exudate, no injection, Sclera: no appreciated abnormality, Lids and lashes: ptosis, of the left eye, mild, 21:40 ENT: External ear(s): are unremarkable, Nose: is normal, Mouth: Lips: moist, Oral mucosa: moist, Posterior pharynx: Airway: no evidence of obstruction, patent, 21:40 Chest/axilla: Inspection: normal, 21:40 Cardiovascular: Rate: normal, Rhythm: regular, Edema: ankle edema, that is mild, JVD: is not appreciated, 21:40 Respiratory: the patient does not display signs of respiratory distress, Respirations: normal, no use of accessory muscles, no retractions, labored breathing, is not present, Breath sounds: are clear throughout, no decreased breath sounds, no stridor, no wheezing, 21:40 Abdomen/GI: Inspection: obese Palpation: abdomen is soft and non-tender, in all quadrants, 21:40 Back: pain, is absent, ROM is normal, 21:40 Skin: cellulitis, is not appreciated, no rash present. 21:40 Neuro: Orientation: to person, place \T\ time. Mentation: is normal, Cerebellar function: Romberg testing is negative, Motor: moves all fours, no focal deficits, Vital Signs: 21:19 BP 155 / 84; Pulse 67; Resp 17; Pulse Ox 97% on R/A; al5 21:22 BP 158 / 141; Pulse 67; Resp 18 S; Temp 98.1(O); Pulse Ox 96% on R/A; Weight 172.37 kg; br2 Height 5 ft. 4 in. ; Pain 5/10; 21:30 BP 149 / 55; Pulse 55; Resp 15; Pulse Ox 97% on R/A; al5 22:00 BP 157 / 60; Pulse 57; Resp 18; Pulse Ox 100% on R/A; al5 22:30 BP 128 / 100; Pulse 56; Resp 16; Pulse Ox 100% on R/A; al5 23:00 BP 168 / 58; Pulse 55; Resp 14; Pulse Ox 100% on R/A; al5 23:30 BP 185 / 47; Pulse 57; Resp 15; Pulse Ox 99% on R/A; al5 10/26 00:03 BP 156 / 57; Pulse 59; Resp 15; Pulse Ox 100% on R/A; al5 00:30 BP 163 / 60; Pulse 53; Resp 15; Pulse Ox 100% ; al5 01:15 BP 114 / 79; Pulse 65; Resp 19; Pulse Ox 100% ; al5 10/25 21:22 Body Mass Index 65.23 (172.37 kg, 162.56 cm) br2 21:22 Pain Scale: Adult br2 MDM: 10/25 22:00 Differential diagnosis: cerebral vascular accident, hyponatremia, intracerebral cp hemorrhage, meningitis, meningoencephalitis, migraine, sinusitis, subarachnoid bleed, tension headache. 22:48 Medical Screening Exam initiated 10/26 01:13 Data reviewed: vital signs, nurses notes, lab test result(s), EKG, radiologic studies, cp CT scan, plain films. 10/25 21:25 Order name: Basic Metabolic Panel; Complete Time: 22:32 cp 10/25 21:25 Order name: CBC with Diff; Complete Time: 22:32 cp 10/25 21:25 Order name: LFT's; Complete Time: 22:32 cp 10/25 21:25 Order name: Magnesium; Complete Time: 22:32 cp 10/25 21:25 Order name: NT PRO-BNP; Complete Time: 22:32 cp 10/25 21:25 Order name: PT-INR; Complete Time: 22:32 cp 10/25 21:25 Order name: Troponin HS; Complete Time: 22:32 cp 10/25 21:25 Order name: Lipase; Complete Time: 22:32 cp 10/25 21:28 Order name: Glucose, Ancillary Testing; Complete Time: 22:32 EDMS 10/25 23:15 Order name: COVID-19 Ag + Flu A+B Ag; Complete Time: 00:50 cp 10/25 21:25 Order name: XRAY Chest (1 view); Complete Time: 22:32 cp 10/25 22:34 Order name: CT Head Brain wo Cont cp 10/25 21:25 Order name: Cardiac monitoring; Complete Time: 21:36 cp 10/25 21:25 Order name: EKG - Nurse/Tech; Complete Time: 21:36 cp 10/25 21:25 Order name: IV Saline Lock; Complete Time: 21:36 cp 10/25 21:25 Order name: Labs collected and sent; Complete Time: 21:36 cp 10/25 21:25 Order name: O2 Per Protocol; Complete Time: 21:36 cp 10/25 21:25 Order name: O2 Sat Monitoring; Complete Time: 21:36 cp 10/26 00:53 Order name: PO challenge; Complete Time: 01:14 cp Administered Medications: 10/25 21:57 Drug: metoCLOPramide IVP 10 mg IVP once; over 1 to 2 minutes Route: IVP; Site: right ha forearm; 23:52 Follow up: Response: No adverse reaction; Nausea unchanged al5 21:58 Drug: diphenhydrAMINE IVP 25 mg IVP once Route: IVP; Site: right forearm; [facility] 23:52 Follow up: Response: No adverse reaction; No change in condition al5 22:14 Drug: Meclizine PO 25 mg PO once Route: PO; [facility] 23:52 Follow up: Response: No adverse reaction al5 23:51 Drug: Droperidol IVP 1.25 mg IVP once Route: IVP; Site: right forearm; al5 10/26 01:15 Follow up: Response: No adverse reaction; Pain is decreased; Nausea is decreased al5 10/25 23:51 Drug: Ondansetron IVP 4 mg IVP once; over 2 minutes Route: IVP; Site: right forearm; al5 10/26 01:15 Follow up: Response: No adverse reaction; Nausea is decreased al5 10/25 23:52 Drug: NS 0.9% IV 500 ml IV at bolus once; to be given as a bolus over 90 minutes Route: al5 IV; Rate: bolus; Site: right forearm; 10/26 01:15 Follow up: Response: No adverse reaction; IV Status: Completed infusion; IV Intake: al5 500ml 00:17 Not Given (Hemodynamic Parameters; BP 159/57g): [id number] mg IVP once; if systolic al5 pressure >180 01:30 Drug: Amoxicillin-Clavulanate PO 875 mg PO once Route: PO; al5 01:33 Follow up: Response: No adverse reaction; Medication administered at discharge. al5 Disposition: 10/27 00:15 Chart complete. cp Disposition Summary: 10/26/24 01:13 Discharge Ordered Notes: Location: Home cp Problem: new cp Symptoms: have improved cp Condition: Stable cp Diagnosis - Headache cp - Acute sinusitis, unspecified cp - Nausea with vomiting, unspecified cp - Paresthesia of skin cp - Hypertensive heart disease with heart failure cp Followup: cp - With: Private Physician - When: 2 - 3 days - Reason: Worsening of condition Discharge Instructions: - Discharge Summary Sheet cp - Migraine Headache cp - Hypertension, Adult cp - Nausea and Vomiting, Adult cp - Sinusitis, Adult cp - Managing Your Hypertension cp Forms: - Medication Reconciliation Form cp - Antibiotic Education cp - Prescription Opioid Use cp - Patient Portal Instructions cp - Leadership Thank You Letter cp Prescriptions: - Fioricet 50-300-40 mg Oral capsule - take 1 capsule ORAL route every 6 hours as needed for pain; 20 capsule; cp Refills: 0, Product Selection Permitted - Augmentin 875-125 mg Oral Tablet - take 1 tablet ORAL route every 12 hours for 10 days; 20 tablet; Refills: 0, cp Product Selection Permitted - Ibuprofen 800 mg Oral Tablet - take 1 tablet ORAL route every 8 hours As needed take with food; 30 tablet; cp Refills: 0, Product Selection Permitted - ondansetron 8 mg Oral Tablet,disintegrating - take 1 tablet ORAL route every 12 hours; 20 tablet; Refills: 0, Product cp Selection Permitted Addendum: 20:09 I was immediately available on-site in the Emergency Department for consultation in the m s3 care of the patient. Signatures: Dispatcher [employer] EDMS Murtaza Mendes PA-C PAJeimyC cp Hipolito Parrish DO DO ms3 Nani Cavanaugh RN RN ha1 Jaimee Zaidi RN RN al5 Carolee Moss RN RN br2 Corrections: (The following items were deleted from the chart) 10/25 22:35 22:34 Head Brain Wo Cont+CT.RAD.BRZ ordered. EDMS EDMS
--- NOTE | 2024-10-26 01:13 | ER ---
Nurse's Notes [facility] Name: Abhishek Quezada Age: 49 yrs Sex: Female : 1975 Arrival Date: 10/25/2024 Time: 21:10 Bed 2 Private MD: Krishna Bailon Diagnosis: Headache;Acute sinusitis, unspecified;Nausea with vomiting, unspecified;Paresthesia of skin;Hypertensive heart disease with heart failure Presentation: 10/25 21:22 Chief complaint: Patient states: Pt c/o nausea, sob, nausea/vomiting (x3) and numbness br2 to forehead and left eye since last night. Pt states these symptoms began after having some daiquaris last night. Coronavirus screen: Client denies travel out of the [place] in the last 14 days. Ebola Screen: Patient denies exposure to infectious person. Ebola Screen: Patient denies exposure to infectious person. Initial Sepsis Screen: Does the patient meet any 2 criteria? No. Patient's initial sepsis screen is negative. Does the patient have a suspected source of infection? No. Patient's initial sepsis screen is negative. Risk Assessment: Do you want to hurt yourself or someone else? Patient reports no desire to harm self or others. Onset of symptoms was October 24, 2024. 21:22 Method Of Arrival: Wheelchair br2 21:22 Acuity: [place] 3 br2 Triage Assessment: 21:25 General: Appears in no apparent distress. comfortable, Behavior is calm, cooperative. br2 Pain: Complains of pain in forehead Pain currently is 5 out of 10 on a pain scale. 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 - Infectious Disease History:: Denies. - Social history:: Smoking status: Reported history of juuling and/or vaping. Patient uses alcohol, but reports only rare drinking. Patient/guardian denies using street drugs. Screenin:44 [facility] ED Fall Risk Assessment (Adult) History of falling in the last 3 months, al5 including since admission No falls in past 3 months (0 pts) Confusion or Disorientation No (0 pts) Intoxicated or Sedated No (0 pts) Impaired Gait No (0 pts) Mobility Assist Device Used No (0 pt) Altered Elimination No (0 pt) Score/Fall Risk Level 0 - 2 = Low Risk Oriented to surroundings, Maintained a safe environment, Hourly rounding (assess needs \T\ fall precautionary measures) done. Abuse screen: Denies threats or abuse. Denies injuries from another. Nutritional screening: No deficits noted. Tuberculosis screening: No symptoms or risk factors identified. Assessment: 21:44 General: Appears in no apparent distress. comfortable, Behavior is calm, cooperative. al5 Pain: Denies pain. Neuro: Level of Consciousness is awake, alert, obeys commands, Oriented to person, place, time, situation, Check Writer Salesperson are equal bilaterally Moves all extremities. Full function Gait is steady, Speech is normal, Facial droop on left, states that the eye asymmetry is normal for her. Pupils are PERRLA, Intact. Cardiovascular: Capillary refill < 3 seconds Patient's skin is warm and dry. Rhythm is sinus rhythm. Respiratory: Airway is patent Respiratory effort is even, unlabored, Respiratory pattern is regular, symmetrical. GI: Abdomen is non-distended, obese, Reports nausea. : No signs and/or symptoms were reported regarding the genitourinary system. EENT: No signs and/or symptoms were reported regarding the EENT system. Derm: Skin is intact, is healthy with good turgor, Skin is pink, warm \T\ dry. normal. Musculoskeletal: Circulation, motion, and sensation intact. Range of motion: intact in all extremities. 22:14 Reassessment: Patient and/or family updated on plan of care and expected duration. Pain ha1 level reassessed. Patient is alert, oriented x 3, equal unlabored respirations, skin warm/dry/pink. Patient states feeling better. Patient states symptoms have improved. 23:27 Reassessment: Patient appears in no apparent distress at this time. No changes from al5 previously documented assessment. Patient and/or family updated on plan of care and expected duration. Pain level reassessed. Patient is alert, oriented x 3, equal unlabored respirations, skin warm/dry/pink. patient c/o headache and nausea, notified provider. 10/26 00:17 Reassessment: Patient appears in no apparent distress at this time. No changes from al5 previously documented assessment. Patient and/or family updated on plan of care and expected duration. Pain level reassessed. Patient is alert, oriented x 3, equal unlabored respirations, skin warm/dry/pink. headache decreased. Vital Signs: 10/25 21:19 BP 155 / 84; Pulse 67; Resp 17; Pulse Ox 97% on R/A; al5 21:22 BP 158 / 141; Pulse 67; Resp 18 S; Temp 98.1(O); Pulse Ox 96% on R/A; Weight 172.37 kg; br2 Height 5 ft. 4 in. ; Pain 5/10; 21:30 BP 149 / 55; Pulse 55; Resp 15; Pulse Ox 97% on R/A; al5 22:00 BP 157 / 60; Pulse 57; Resp 18; Pulse Ox 100% on R/A; al5 22:30 BP 128 / 100; Pulse 56; Resp 16; Pulse Ox 100% on R/A; al5 23:00 BP 168 / 58; Pulse 55; Resp 14; Pulse Ox 100% on R/A; al5 23:30 BP 185 / 47; Pulse 57; Resp 15; Pulse Ox 99% on R/A; al5 10/26 00:03 BP 156 / 57; Pulse 59; Resp 15; Pulse Ox 100% on R/A; al5 00:30 BP 163 / 60; Pulse 53; Resp 15; Pulse Ox 100% ; al5 01:15 BP 114 / 79; Pulse 65; Resp 19; Pulse Ox 100% ; al5 10/25 21:22 Body Mass Index 65.23 (172.37 kg, 162.56 cm) br2 21:22 Pain Scale: Adult br2 ED Course: 10/25 21:11 Patient arrived in ED. jj6 21:12 Krishna Bailon MD is Private Physician. jj6 21:14 Murtaza Mendes PA is PHCP. cp 21:14 Hipolito Parrish DO is Attending Physician. cp 21:25 Triage completed. br2 21:25 Arm band placed on right wrist. br2 21:30 Jaimee Zaidi, TRISHA is Primary Nurse. al5 21:34 Patient has correct armband on for positive identification. Bed in low position. Call al5 light in reach. Side rails up X 1. Provided Education on: plan of care. 21:34 No provider procedures requiring assistance completed. Inserted saline lock: 20 gauge al5 in right forearm, using aseptic technique. Blood collected. Flushed with 10 mL NS. 22:00 XRAY Chest (1 view) In Process Unspecified. EDMS 23:39 CT Head Brain wo Cont In Process Unspecified. EDMS 10/26 01:37 IV discontinued, intact, bleeding controlled, No redness/swelling at site. Pressure al5 dressing applied. Administered Medications: 10/25 21:57 Drug: metoCLOPramide IVP 10 mg IVP once; over 1 to 2 minutes Route: IVP; Site: right ha1 forearm; 23:52 Follow up: Response: No adverse reaction; Nausea unchanged al5 21:58 Drug: diphenhydrAMINE IVP 25 mg IVP once Route: IVP; Site: right forearm; [facility] 23:52 Follow up: Response: No adverse reaction; No change in condition al5 22:14 Drug: Meclizine PO 25 mg PO once Route: PO; ha1 23:52 Follow up: Response: No adverse reaction al5 23:51 Drug: Droperidol IVP 1.25 mg IVP once Route: IVP; Site: right forearm; al5 10/26 01:15 Follow up: Response: No adverse reaction; Pain is decreased; Nausea is decreased al5 10/25 23:51 Drug: Ondansetron IVP 4 mg IVP once; over 2 minutes Route: IVP; Site: right forearm; al5 10/26 01:15 Follow up: Response: No adverse reaction; Nausea is decreased al5 10/25 23:52 Drug: NS 0.9% IV 500 ml IV at bolus once; to be given as a bolus over 90 minutes Route: al5 IV; Rate: bolus; Site: right forearm; 10/26 01:15 Follow up: Response: No adverse reaction; IV Status: Completed infusion; IV Intake: al5 500ml 00:17 Not Given (Hemodynamic Parameters; BP 159/57g): [id number] mg IVP once; if systolic al5 pressure >180 01:30 Drug: Amoxicillin-Clavulanate PO 875 mg PO once Route: PO; al5 01:33 Follow up: Response: No adverse reaction; Medication administered at discharge. al5 Medication: 10/25 21:44 VIS not applicable for this client. al5 Intake: 10/26 01:15 IV: 500ml; Total: 500ml. al5 Outcome: 01:13 Discharge ordered by . cp 01:37 Discharged to home via wheelchair, al5 01:37 Condition: good 01:37 Discharge instructions given to patient, Instructed on discharge instructions, follow up and referral plans. medication usage, Demonstrated understanding of instructions, follow-up care, medications, Prescriptions given X 4, 01:38 Patient left the ED. al5 Signatures: Dispatcher [employer] EDMS Murtaza Mendes PA-C PA-C cp Jeffries, Jennifer jj6 Nani Cavanaugh RN RN ha1 Jaimee Zaidi RN RN al5 Carolee Moss RN RN br2 Corrections: (The following items were deleted from the chart) 10/25 21:31 21:22 BP 158 / 141; Pulse 67bpm; Resp 18bpm; Spontaneous; Pulse Ox 96% RA; 172.37 kg; br2 Height 5 ft. 4 in.; BMI: 65.2; Pain 5/10, Adult; br2 23:52 23:51 Droperidol IVP 1.25 mg IVP in right antecubital al5 al5 23:52 23:51 Ondansetron IVP 4 mg IVP in right antecubital al5 al5 23:52 23:52 NS 0.9% IV 500 ml IV at bolus in right antecubital al5 al5
[2024-10-26] MEDS ORDERED: AMOX/K CLAV 875 MG TAB ONE (01:21)
[2024-10-26 10:55] VITALS: TEMP 98.1
[2024-10-26 11:05] VITALS: O2SAT 100
[2024-10-26 11:08] VITALS: BP 114/79
== END 2024-10-26 01:38 | disposition home or self-care (01) ==
LOC: ER 21:10
DX: J01.90 Acute sinusitis, unspecified (principal); I11.0 Hypertensive heart disease with heart failure; R11.2 Nausea with vomiting, unspecified; R20.2 Paresthesia of skin; Z11.52 Encounter for screening for COVID-19
CPT/HCPCS: 96361; 93005; 85025; 80048; 36415; 83735; 85610; 82947; 80076; 84484; 83690; 83880; 70450; 71045; 96375; 96374; 99284; 87428; J8597; J2765; J1200; J2405; J1790; J7040